=== PATIENT | male | born 1950 | race Caucasian/White ===

== ENCOUNTER 2021-05-23 10:44 | Outpatient (REF) | payer MEDICARE, SELFPAY ==
--- NOTE | ~2021-05-23 | CT_ITS ---
EXAMINATION: CT ABDOMEN AND PELVIS WITH CONTRAST CLINICAL INFORMATION: Left lower quadrant pain COMPARISON: None TECHNIQUE: Multidetector volumetric images were obtained from the superior aspect of the liver through the pubic symphysis following administration 85 mL of Omnipaque 350 intravenous contrast. Oral contrast was given Sagittal and coronal reformatted images were obtained on the technologist's workstation. Oral contrast: No This CT examination was performed using dose optimization techniques as appropriate, variously including the following: *Automated exposure control *Adjustment of mA and/or kV according to patient size (this includes techniques or standardized protocols for targeted exams where dose is matched to indication/reason for exam; i.e. extremities or head) *Use of iterative reconstruction technique DLP: 458 mGy-cm FINDINGS: LUNG BASES: The visualized lung bases are unremarkable. LIVER, GALLBLADDER, AND BILIARY TREE: The liver is normal in size, shape, and attenuation. No focal hepatic lesion or biliary ductal dilatation is present. The gallbladder is unremarkable with no evidence of radiopaque gallstones, gallbladder wall thickening, or obvious pericholecystic inflammatory changes. PANCREAS: Unremarkable. SPLEEN: Unremarkable. ADRENAL GLANDS: Unremarkable. KIDNEYS AND URETERS: The kidneys are normal in size, shape, and attenuation. No hydronephrosis, hydroureter, or calculi seen. No perinephric stranding. BLADDER: Unremarkable. GASTROINTESTINAL TRACT: There are numerous scattered diverticula of the sigmoid colon and left colon. There is no diverticulitis. There is no bowel wall thickening /edema. There is no bowel obstruction. There is a moderate volume of stool in the colon. The appendix is normal . The small bowel loops are unremarkable. The stomach is normal. There is no hiatal hernia. ABDOMINAL WALL: No significant hernia is appreciated. LYMPH NODES: Normal. VASCULAR: Unremarkable. PELVIC VISCERA: Prostate measures 6 cm transverse. OSSEOUS STRUCTURES: Unremarkable. CT/CT abdomen pelvis w con IMPRESSION: No acute abnormality CT scan abdomen pelvis. There is diverticulosis of the sigmoid and left colon but no evidence of diverticulitis. There is no acute abnormality of the bowel.
[2021-05-23 12:06] LABS: MANUAL DIFF FLAG NO
[2021-05-23 12:14] LABS: Basophils Absolute Auto 0.1 X10*3/uL (0.0-0.2); Basophils Percent Auto 0.6 % (0-2); Eosinophils Absolute Auto 0.2 X10*3/uL (0.0-0.4); Eosinophils Percent Auto 2.9 % (0-4); Hematocrit 40.3 % (42-52); Hemoglobin 13.1 g/dl (14.0-18.0); Imm Gran Abs Auto 0.07 X10*3/uL (0.00-0.03); Imm Gran Pct Auto 0.9 % (0.0-0.4); Lymphocytes Absolute Auto 1.8 X10*3/uL (1.2-4.9); Lymphocytes Percent Auto 22.2 % (20-40); Mean Corpuscular HGB Conc 32.5 g/dl (31.0-36.0); Mean Corpuscular Hemoglobin 29.7 pg (27.0-33.0); Mean Corpuscular Volume 91.4 fL (80-98); Mean Platelet Volume 9.5 fL (9.4-12.4); Monocytes Absolute Auto 0.5 X10*3/uL (0.1-1.2); Monocytes Percent Auto 6.4 % (2-11); Neutrophils Absolute Auto 5.5 X10*3/uL (2.0-8.3); Platelet Count 247 X10*3/uL (160-400); Red Blood Count 4.41 X10*6/uL (4.60-5.80); Red Cell Distribution Width 12.8 % (11.0-16.0); White Blood Count 8.1 X10*3/uL (4.8-10.8)
[2021-05-23 12:57] LABS: Blood Urea Nitrogen 18 mg/dL (9-16); Estimated Glomerular Filt Rate > 60
[2021-05-23] MEDS: iohexoL 350 MG/ML 100 ML INFUS..BTL IV (17:25)
[2021-05-23] MEDS: Barium Sulfate Oral (Vanilla) 450 ML ORAL.SUSP 900 ML PO (17:25)
== END 2021-05-23 10:45 | disposition home or self-care (01) ==
LOC: HO.CT 10:44
PROVIDERS: Absent Provider Pediatrics; PCP Pediatrics; Visit Provider Emergency Medicine
DX: Z12.5 Encounter for screening for malignant neoplasm of prostate (principal); R10.32 Left lower quadrant pain
CPT/HCPCS: 36415; 74177; 82565; 84153; 84520; 85025; Q9967

== ENCOUNTER → 2021-11-08 08:39 | Outpatient (BNVA) | payer MEDICARE, SELFPAY | PROVIDERS: PCP Pediatrics; Visit Provider Urology | DX: N40.1 Benign prostatic hyperplasia with lower urinary tract symptoms (principal); N13.8 Other obstructive and reflux uropathy; R33.9 Retention of urine, unspecified | CPT/HCPCS: 99202 ==

== ENCOUNTER 2021-11-15 10:03 | Outpatient (REF) | payer MEDICARE, SELFPAY ==
--- NOTE | ~2021-11-15 | US_ITS ---
EXAMINATION: US PELVIS LIMITED (BLADDER) CLINICAL INFORMATION: Poor urinary stream. BPH. COMPARISON: CT abdomen and pelvis 05/23/2021 TECHNIQUE: Real-time imaging of the bladder. FINDINGS: BLADDER: Well distended and normal. Bilateral ureteral jets are demonstrated. Prevoid bladder volume is 427 mL. Postvoid bladder volume is 50.6 mL. PROSTATE: Enlarged, with a volume of 81 mL. US/US bladder IMPRESSION: Normal sonographic appearance of the bladder. Small postvoid residual volume of 50 mL. Enlarged prostate gland..
== END 2021-11-15 10:04 | disposition home or self-care (01) ==
LOC: HO.HMGCX 10:03
PROVIDERS: PCP Pediatrics; Visit Provider Urology
DX: R39.12 Poor urinary stream (principal); N40.1 Benign prostatic hyperplasia with lower urinary tract symptoms
CPT/HCPCS: 76857

== ENCOUNTER → 2021-12-13 10:01 | Outpatient (BNVA) | payer MEDICARE, SELFPAY | PROVIDERS: PCP Pediatrics; Visit Provider Urology | DX: N40.1 Benign prostatic hyperplasia with lower urinary tract symptoms (principal); N13.8 Other obstructive and reflux uropathy; R33.9 Retention of urine, unspecified | CPT/HCPCS: 52000; 99212 ==

== ENCOUNTER 2022-07-11 16:08 | Outpatient (REF) | payer MEDICARE, SELFPAY ==
--- NOTE | ~2022-07-11 | XR_ITS ---
EXAMINATION: XR LUMBOSACRAL SPINE CLINICAL INFORMATION: Low back pain and right-sided sciatica COMPARISON: Previous lumbar spine MRI October 2017 TECHNIQUE: Three views of the lumbosacral spine. FINDINGS: There is mild curvature of the lumbar spine to the left. Bone alignment is otherwise normal. No fracture or dislocation is seen. Disc spaces are normal. There is multilevel degenerative spondylosis greatest at L2-L3, L3-L4 and L4-L5. There is lower lumbar spine facet arthritis. XR/XR lumbar spine 2-3V IMPRESSION: Multilevel degenerative changes.
== END 2022-07-11 16:09 | disposition home or self-care (01) ==
LOC: HO.XRAY 16:08
PROVIDERS: Absent Provider Pediatrics; PCP Pediatrics; Visit Provider Emergency Medicine
DX: M54.41 Lumbago with sciatica, right side (principal)
CPT/HCPCS: 72100

== ENCOUNTER → 2023-05-06 10:34 | Outpatient (BNVA) | payer MEDICARE, SELFPAY | PROVIDERS: PCP Pediatrics; Visit Provider Nurse Practitioner Family | DX: N40.1 Benign prostatic hyperplasia with lower urinary tract symptoms (principal); N13.8 Other obstructive and reflux uropathy; E11.69 Type 2 diabetes mellitus with other specified complication; N52.1 Erectile dysfunction due to diseases classified elsewhere; R33.9 Retention of urine, unspecified; R35.0 Frequency of micturition; Z79.82 Long term (current) use of aspirin; Z79.899 Other long term (current) drug therapy | CPT/HCPCS: 51798; 99212 ==

== ENCOUNTER 2023-05-28 12:37 | Outpatient (REF) | payer MEDICARE, SELFPAY ==
--- NOTE | ~2023-05-28 | XR_ITS ---
EXAMINATION: XR BILATERAL HIPS WITH AP PELVIS CLINICAL INFORMATION: Chronic bilateral hip pain (right worse than left) COMPARISON: CT of abdomen and pelvis from 05/23/2021. TECHNIQUE: Pelvis, AP view Right hip, 2 views and left hip, 2 views FINDINGS: There are vertebral osteophytes of the visualized mildly degenerated lumbar spine. The osseous pelvic ring is intact. Alignment is normal at the hips, pubic symphysis and sacroiliac joints. The articular surfaces of the sacroiliac joints are smooth. The joint space of each hip is maintained. No radiographic evidence of any significant degenerative or inflammatory arthropathy at either hip. A very small ossicle projects lateral to the left acetabulum. No suspicious bone lesions. XR/XR hip BI w PEL1V IMPRESSION: * No evidence of sacroiliitis. * No significant findings at either hip. * Mild spondylosis of the visualized lumbar spine.
== END 2023-05-28 12:38 | disposition home or self-care (01) ==
LOC: HO.XRAY 12:37
PROVIDERS: PCP Pediatrics; Visit Provider Pediatrics
DX: M25.551 Pain in right hip (principal)
CPT/HCPCS: 73521

== ENCOUNTER 2023-06-16 11:00 | Outpatient (REF) | payer MEDICARE, SELFPAY ==
--- NOTE | ~2023-06-16 | US_ITS ---
EXAMINATION: US RETROPERITONEAL COMPLETE (RENAL) CLINICAL INFORMATION: Benign prostatic hyperplasia with lower urinary tract symptoms. COMPARISON: US pelvis limited (bladder) 11/15/2021. CT abdomen and pelvis with contrast 05/23/2021. TECHNIQUE: Real-time imaging of the kidneys and bladder. FINDINGS: RIGHT KIDNEY: 10.8 x 5.6 x 5.7 cm (SAG x AP x TRV). The kidney is normal in size, contour, and echogenicity. Renal cortical thickness is normal. No renal calculi or hydronephrosis. Subcentimeter benign-appearing renal cyst, no follow-up imaging recommended. LEFT KIDNEY: 11.9 x 4.9 x 4.7 cm (SAG x AP x TRV). The kidney is normal in size, contour, and echogenicity. Renal cortical thickness is normal. No hydronephrosis. Subcentimeter benign-appearing renal cyst, no follow-up imaging recommended. Nonobstructing 2 mm lower pole renal stone. BLADDER: Well distended. Bilateral ureteral jets are demonstrated. Prevoid bladder volume is 182 mL. Postvoid bladder volume is 9.3 mL. Urinary bladder is equivocally thick-walled, consider correlation with urinalysis and symptoms of cystitis. ADDITIONAL FINDINGS: Prostate is enlarged measuring 47 mL. US/US retroperitoneal comp IMPRESSION: 1. Urinary bladder is equivocally thick-walled, consider correlation with urinalysis and symptoms of cystitis. 2. Prostate is enlarged measuring 47 mL. 3. Nonobstructing 2 mm left lower pole renal stone.
== END 2023-06-16 11:01 | disposition home or self-care (01) ==
LOC: HO.US 11:00
PROVIDERS: PCP Pediatrics; Visit Provider Nurse Practitioner Family
DX: N40.1 Benign prostatic hyperplasia with lower urinary tract symptoms (principal); N13.8 Other obstructive and reflux uropathy
CPT/HCPCS: 76770

== ENCOUNTER 2023-06-20 12:52 | Outpatient (AMB) | payer MEDICARE, SELFPAY ==
--- NOTE | 2023-06-20 13:03 | MHC.OFFVIS ---
Intake Intake Visit Reasons: cysto/US(06/16) Intake Note: Patient presents today for a CYSTOSCOPY Procedure: Meds: Finasteride & Terazosin Allergies to Antibiotic: Sulfa Blood Thinner: Aspirin Urinalysis test clear for Cysto? Disposable Uro-G Cystoscope Cannula: Lot: [id number] Exp: 03/28/2025 Allergies No Known Allergies Allergy (Verified 05/06/23 10:36) PFSH Medical History HTN (hypertension) Hyperlipidemia Social History Alcohol intake: current Alcohol intake frequency: holidays/special occasions only Alcohol type: wine Patient Tobacco Use Status: Never used Tobacco Coding Diagnoses
--- NOTE | 2023-06-20 13:10 | A.OFFVIS_ITS ---
Intake Intake Visit Reasons: cysto/US(06/16) Intake Note: Pt presents to the office for a Cystoscopy/US. Urinalysis done. Allergies No Known Allergies Allergy (Verified 07/07/23 07:48) HPI HPI Comments History of Present Illness Details Jamir is a pleasant Portugese male. He is a patient of Dr. Boyd. he is seen for the follow-up issues - bladder outlet obstruction - erectile dysfunction Prior TURP in [place]/ Cysto with persistent tissue Plan for revision PREVIOUS VISIT HISTORY ------ cystoscopy - large apple shaped prostate Lower urinary tract symptoms Progressive with nocturia 2-3 Feeling of incomplete bladder emptying and weak stream with urinary hesitancy Current medication combination therapy terazosin 5 mg and finasteride Prior therapy tamsulosin Concomitant diagnoses include diabetes Bladder ultrasound 12/15 prostate 80 g, residual 50 cc PSA 12/13 2.5 Cystoscopy 12/15 - large oval-shaped prostate Erectile dysfunction Does have good response to Levitra Has muscle cramps with tadalafil and headache with sildenafil Continue vardinafil Will look for generic availability; script provided [facility] Medical History (Updated 07/04/23 @ 09:29 by Kateryna Salomon NP) DMII (diabetes mellitus, type 2) HTN (hypertension) Hyperlipidemia Surgical History (Updated 07/07/23 @ 07:53 by Thao Dorsey) H/O cataract extraction H/O eye surgery H/O knee surgery History of prostate surgery Status post left rotator cuff repair Status post right rotator cuff repair Social History Alcohol intake: current Alcohol intake frequency: a few times a month Alcohol type: wine Patient Tobacco Use Status: Never used Tobacco Use of substances other than those prescribed or required for medical reasons: No Are you DNR?: No Advance Directives: No Advance Directives Information Provided: Yes Review of Systems Const Denies chills and Denies fever(s) Card Reports no additional complaints and Denies syncope Resp Denies cough GI Denies abdominal pain and Denies heartburn Reports as per HPI and Denies change in libido Neuro Denies syncope Psych Denies change in libido Endo Denies change in libido Physical Exam Const General: cooperative, healthy appearing, comfortable and no acute distress Orientation/consciousness: patient oriented x3 HEENT Face and sinus: Yes normal facial exam Mouth: moist mucous membranes Neck Neck: Yes normal visual inspection, Yes full ROM and Yes trachea midline Chest Chest palpation & inspection: normal inspection of the chest Resp Effort & Inspection: normal respiratory effort, able to speak in complete sentences and no respiratory distress GI Inspection: Yes normal to inspection Back/Spine/Pelvis Cervical Spine: normal cervical lordosis Thoracic/Lumbar Spine: thoracic and lumbar spine normal to inspection Skin General skin exam: no rashes or lesions noted Neuro General: patient oriented x3, gait normal, tone normal and moves all extremities Extrem General: Yes normal to inspection and Yes capillary refill normal Office Procedures Cystoscopy Consent Discussed risk and benefit or proposed procedure with the patient. Information consent for procedure given to the patient. Discussed technical aspects, risks, benefits and alternatives in full. Addressed all of the patient's questions and concerns regarding the procedure. The patient demonstrated knowledge and understanding. They wish to proceed with this procedure. Preparation The patient was prepped in the usual manner. A watermelon inspector was present and in the room. Genitalia was prepped with betadine solution in a sterile manner. Lidocaine Jelly 2% was placed into the urethra and 16Fr flexible Olympus cystoscope was inserted into the meatus after adequate lubrication. Procedure recurrent tissue [id number] DISPOSABLE SCOPE URO-G FLEXIBLE SCOPE Procedure code (CPT) selection complete Office Meds lidocaine HCl Performing Provider: Shamir Hsieh MD Administered by: Gracie Bonilla RN on 06/20/23 13:29 Dose Route Admin Location Lot Number Expiration Date [employer] 10 mL intra-urethral nitrofurantoin monohyd/m-cryst 100 mg Performing Provider: Shamir Hsieh MD Administered by: Gracie Bonilla RN on 06/20/23 13:29 Dose Route Admin Location Lot Number Expiration Date [employer] 100 mg PO Results AMB Urinalysis, Automated UA Leukoctes 0 Noemí/uL Last Edit by Marium García MA on 06/20/23 13:18 UA Nitrite Negative Last Edit by Marium García MA on 06/20/23 13:18 UA Urobilinogen 0.2 mg/dL Last Edit by Marium García MA on 06/20/23 13:18 UA Protein 0 mg/dL Last Edit by Marium García MA on 06/20/23 13:18 UA pH 6.5 Last Edit by Marium García MA on 06/20/23 13:18 UA Blood 0 Bassam/uL Last Edit by Marium García MA on 06/20/23 13:18 UA Specific [place] 1.010 Last Edit by Marium García MA on 06/20/23 13:18 UA Ketone Negative Last Edit by Marium García MA on 06/20/23 13:18 UA Bilirubin 0 mg/dL Last Edit by Marium García MA on 06/20/23 13:18 UA Glucose 0 mg/dL Last Edit by Marium García MA on 06/20/23 13:18 Results Reviewed Results Reviewed: Laboratory Last Values Urine pH (Auto) 6.5 06/20/23 13:13 Specific [place] (Auto) 1.010 06/20/23 13:13 Urine Protein (Auto) 0 mg/dL 06/20/23 13:13 Glucose (UA)(Auto) 0 mg/dL 06/20/23 13:13 Urine Ketones (Auto) Negative 06/20/23 13:13 Urine Blood (Auto) 0 Bassam/uL 06/20/23 13:13 Urine Nitrite (Auto) Negative 06/20/23 13:13 Urine Bilirubin (Auto) 0 mg/dL 06/20/23 13:13 Urine Urobilinogen (Auto) 0.2 mg/dL 06/20/23 13:13 Leukocyte Esterase (Auto) 0 Noemí/uL 06/20/23 13:13 Assessment & Plan Assessment & Plan (1) BPH w urinary obs/LUTS: Code(s): N40.1 - Benign prostatic hyperplasia with lower urinary tract symptoms; N13.8 - Other obstructive and reflux uropathy (2) Urinary urgency: Code(s): R39.15 - Urgency of urination (3) Urinary frequency: Code(s): R35.0 - Frequency of micturition Plan Risks, benefits and alternatives to therapy were discussed. These include but are not limited to infection, bleeding, damage to local organs and tissues, need for further interventions. Anesthetic risks regarding cardiac arrhythmia, blood clots, and potential mortality were discussed. The patient understands the typical recovery time and the outpatient nature of the procedure. After consideration of these risks the patient gives full informed consent and they wish to move ahead with the procedure. Revision laser prostatetcomy Orders: Orders AMB Cystoscopy 07/28/23 N40.1 - Benign prostatic hyperplasia with lower urinary tract symptoms, N13.8 - Other obstructive and reflux uropathy AMB Urinalysis Automated 06/20/23 Z13.9 - Encounter for screening, unspecified Patient Instructions: Imaging studies, laboratory and physical exam results were discussed and reviewed in detail. No major barriers to patient understanding were identified. An opportunity to ask questions regarding the treatment plan was provided. All questions were answered. The patient expressed understanding and agreement with the above treatment plan. The patient is aware they should contact our office by phone for worsening of their current condition or the appearance of new urologic symptoms. Compliance is encouraged with any medications and followup testing that is ordered. It is a privilege to participate in the urologic care of your patient. If you have any questions or concerns regarding treatment for the above conditions, or other urologic issues, please do not hesitate to contact me. The office telephone contact is [phone]. This note is constructed using voice recognition software. While every effort has been made to ensure accuracy funding analyst errors may have been included. Yours sincerely, Dr Shamir Hsieh MD, [facility] - Urology Providers of Expert, Compassionate Care for the Genitourinary System Coding Level of Care Code Est Pt Level 4 (45553) Diagnoses BPH w urinary obs/LUTS N40.1; N13.8 Urinary urgency R39.15 Urinary frequency R35.0 CPT Codes Cystoscopy - CPT: [id number] ([id number]) Cystoscopy - CPT: DISPOSABLE SCOPE URO-G FLEXIBLE SCOPE ([id number])
== END 2023-06-20 14:03 | disposition home or self-care (01) ==
PROVIDERS: PCP Pediatrics; Visit Provider Urology
DX: N40.1 Benign prostatic hyperplasia with lower urinary tract symptoms (principal); N13.8 Other obstructive and reflux uropathy; R39.15 Urgency of urination; R35.0 Frequency of micturition
CPT/HCPCS: 52000

== ENCOUNTER → 2023-06-20 12:52 | Outpatient (BNVA) | payer MEDICARE, SELFPAY | PROVIDERS: PCP Pediatrics; Visit Provider Urology | DX: N40.1 Benign prostatic hyperplasia with lower urinary tract symptoms (principal); N13.8 Other obstructive and reflux uropathy; R39.15 Urgency of urination; R35.0 Frequency of micturition | CPT/HCPCS: 52000; 81003; C1747 ==

== ENCOUNTER 2023-07-07 07:16 | Day surgery (SDC) | payer MEDICARE, SELFPAY ==
--- NOTE | 2023-07-04 09:28 | P.CONAN_ITS ---
Documented by User: Kateryna Salomon NP 07/04/23 09:29 HPI - Anesthesia Eval Consult details Narrative: 73yo M for REVISION Laser Ablation Prostate w/Green Light PMFSH Active Problems Active Problems: All Active Problems (Updated 05/06/23 @ 21:50 by JUANI PhamP-) Erectile dysfunction associated with type 2 diabetes mellitus (Acute) Urinary frequency (Acute) Urinary urgency (Acute) Incomplete emptying of bladder due to benign prostatic hyperplasia (Acute) BPH w urinary obs/LUTS (Acute) Past Medical History Medical History (Updated 07/04/23 @ 09:29 by Kateryna Salomon NP) DMII (diabetes mellitus, type 2) HTN (hypertension) Hyperlipidemia Surgical History Surgical History (Updated 07/07/23 @ 07:53 by Thao Dorsey) H/O cataract extraction H/O eye surgery H/O knee surgery History of prostate surgery Status post left rotator cuff repair Status post right rotator cuff repair Social History Social History Alcohol intake: current Alcohol intake frequency: a few times a month Alcohol type: wine Patient Tobacco Use Status: Never used Tobacco Use of substances other than those prescribed or required for medical reasons: No Are you DNR?: No Advance Directives: No Advance Directives Information Provided: Yes Meds Allergies Allergy/AdvReac Type Severity Reaction Status Date / Time No Known Allergies Allergy Verified 07/07/23 07:48 Home Medications Medication Instructions Recorded Confirmed Last Taken Type atorvastatin 40 mg tablet 40 mg PO DAILY 11/08/21 07/07/23 Unknown History losartan 50 mg-hydrochlorothiazide 1 tab PO DAILY 11/08/21 07/07/23 07/06/23 History 12.5 mg tablet albuterol sulfate 90 mcg/actuation 2 puff inhalation Q4H PRN wheezing 05/06/23 07/07/23 Unknown History aerosol inhaler (Proventil HFA) fluticasone propionate 110 1 puff inhalation DAILY 05/06/23 07/07/23 Unknown History mcg/actuation HFA aerosol inhaler (Flovent HFA) metformin 500 mg tablet,extended 1,000 mg PO DAILY 05/06/23 07/07/23 07/06/23 History release 24 hr Exam Exam Date and Time: July 04, [id number] Assessment and Plan Assessment Anesthesia Assessment: Chart Reviewed Documented by User: Ben Elizondo MD 07/07/23 09:07 PMF Past Medical History Medical History (Updated 07/04/23 @ 09:29 by Kateryna Salomon NP) DMII (diabetes mellitus, type 2) HTN (hypertension) Hyperlipidemia Family History Family history of problems with anesthesia: No Surgical History Surgical History (Updated 07/07/23 @ 07:53 by Thao Dorsey) H/O cataract extraction H/O eye surgery H/O knee surgery History of prostate surgery Status post left rotator cuff repair Status post right rotator cuff repair History of Problems with Anesthesia: No Social History Social History Alcohol intake: current Alcohol intake frequency: a few times a month Alcohol type: wine Patient Tobacco Use Status: Never used Tobacco Use of substances other than those prescribed or required for medical reasons: No Are you DNR?: No Advance Directives: No Advance Directives Information Provided: Yes Meds Allergies Allergy/AdvReac Type Severity Reaction Status Date / Time No Known Allergies Allergy Verified 07/07/23 07:48 Home Medications Medication Instructions Recorded Confirmed Last Taken Type atorvastatin 40 mg tablet 40 mg PO DAILY 11/08/21 07/07/23 Unknown History losartan 50 mg-hydrochlorothiazide 1 tab PO DAILY 11/08/21 07/07/23 07/06/23 History 12.5 mg tablet albuterol sulfate 90 mcg/actuation 2 puff inhalation Q4H PRN wheezing 05/06/23 07/07/23 Unknown History aerosol inhaler (Proventil HFA) fluticasone propionate 110 1 puff inhalation DAILY 05/06/23 07/07/23 Unknown History mcg/actuation HFA aerosol inhaler (Flovent HFA) metformin 500 mg tablet,extended 1,000 mg PO DAILY 05/06/23 07/07/23 07/06/23 History release 24 hr Exam Airway Mallampati Class: I TM Dist: >3cm Neck ROM: Full Loose/Missing/Broken Teeth: No Heart: ok Lungs: ok Assessment and Plan Assessment Anesthesia Assessment: Anesthesia Plan Discussed Final Anesthetic Review Family History of Problems with Anesthesia: No History of Problems with Anesthesia: No NPO: Yes ASA Class: II Final Preanesthetic Review: No Changes in Pt Med Stat, Meds/Allgs Chart Reviewed , Consent Obtained/Reviewed and Anes Risks/Benef Reviewed Patient Risk: Low Procedure Risk: Low Anesthetic Plan Anesthetic Plan: GA and Agree w/ Assess. and Plan Disposition: Standard PACU
[2023-07-07] VITALS (7 sets, daily range): BP systolic 128–143; BP diastolic 62–70; PULSE 56–72; RESP 12–16; TEMP 36.3–36.9; O2SAT 95–98; BMI 29.1
[2023-07-07 08:01] LABS: Glucose, Whole Blood 148 mg/dL (60-115)
[2023-07-07] MEDS: Lactated Ringers 1,000 ML 100 ML IVCONT (08:17)
--- NOTE | 2023-07-07 08:35 | MHC.SHP ---
Pre-Procedural Eval Section A Date of Service: 07/07/23 The patient is an INPATIENT: No Changes since office visit: No Cold of Flu in the past 2 weeks, No New Medical Problems, No Changes in Medication and No Patient answered all questions The History & Physical has been completed within 30 days and I have reviewed it.: No Section B Chief Complaint: Benign prostatic hyperplasia with lower urinary tr Details of Present Illness: RECURRENT TISSUE Relevant Social History: None Present Medications: see Short Stay Collaborative assessment Medical History: No relevant PMH History of Previous Operations: Relevant previous surgery/procedure and date(s) Allergies: Allergies Allergy/AdvReac Type Severity Reaction Status Date / Time No Known Allergies Allergy Verified 07/07/23 07:48 Review of Systems Sugical H&P ROS: Negative: Constitution, Cardiovascular, Respiratory, Neurological, Psychiatric, Hem-Onc, Allergic/Immunologic, Gastrointestinal, Genitourinary, Musculoskeletal, Integumentary, Endocrine and Eyes/Ears/Nose/Throat Exam Surgical H&P Exam: Normal: HEENT, Normal: Heart, Normal: Lungs, Normal: Extremities, Normal: Abdomen, Normal: Skin and Normal: Neurological Plan Diagnosis/Plan: Unchanged (revision TURP laser) I have reviewed the history and physical and performed a pertinent physical examination on my patient. No changes have occurred unless specified. Time Spent With Patient Time: Total time managing care of this patient today ____ minutes.
--- NOTE | 2023-07-07 09:44 | P.OP_ITS ---
Operative Note Operative Note Date of Service: 07/07/23 Narrative: PreOperative Diagnosis: Bladder outlet obstruction Post Operative Diagnosis: Bladder outlet obstruction Procedure: GreenLight Laser Enucleation of the prostate Surgeon: Dr Shamir Hsieh Anesthesia: General Indications for procedure: apparent procedure in [place] but still very symptomatic History of bladder outlet obstruction. Treated with alpha-obed and other medications. Still with symptoms. On cystoscopy in office has trilobar prostate. Recommendation for prostate procedure with laser enucleation of prostate. Risks and benefits have been discussed. Focus was placed on development of retrograde ejaculation which is a normal part of this procedure. Procedure: After informed consent was verified the patient was brought to the operating room and placed in a supine position. Anesthesia was administered per protocol. Patient was placed in modified dorsal lithotomy position and prepped and draped in a sterile fashion. Safety pause time-out was confirmed. Antibiotics have been given. A Twenty-four Sinhala laser cystoscope was inserted per urethra. No abnormalities were found of the anterior and bulbar urethra. The bladder was examined and both ureteric orifices were seen in their normal positions away from the area of interest. Using a GreenLight laser with settings of 80 w incisions were made at the 5 and 7 o'clock position. The incisions were taken down from the bladder neck down to the level of the veru. These were gradually deepened in order to define the lateral aspects of the median lobe area. Once clearly defined they will also extended in the lateral directions in order to create a deep groove. The median lobe was then ablated and enucleated tissue released into the bladder with the laser power increased to 120 W. Once the median lobe area had been cleared attention was directed to the lateral lobes. Starting with the patient's left lateral lobe. First the 05:00 o'clock groove was further developed. This was moved in the lateral direction to undermine the tissue on the lateral side running from the bladder neck to the prostate apex. Focus was then placed on the laser at the 1 o'clock position to developing a secondary groove down to the level of bladder fibers. The creation of a second deep groove defined a segment of intervening tissue similar to a slice of orange. At the apex of the prostate the 2 grooves were linked the us releasing the intervening tissue. This tissue was then removed with a combination of enucleation and ablation working from the apex toward the bladder neck. A similar procedure was repeated on the patient's right-hand side. The only differences being the position of the lateral groove at he 7 'oclock positioin and the secondary groove at the 11 o'clock position, Otherwise the procedure was developed in a mirror fashion. After the majority of tissue had been debulked remnant tissue was ablated with the side fire laser and the curve of the prostate followed up each side wall clearly defining the anterior remnant strip that remained between the 11 and 1 o'clock positions. When this was had been completed debris and pieces of prostate were removed from the bladder with irrigation. Both ureteric orifices were reviewed again in shown to be patent in away from any areas of energy damage. The apical area was reviewed in any stray ooze was controlled. A 22 Sinhala 30 cc balloon Cates catheter was placed over a stylet into the bladder. Clear efflux was obtained upopn irrigation with a Ayleen piston syringe. 30 cc was placed in the balloon and gentle traction was placed. A snap was used to hold tension on the catheter to control bleeding during patient moved and transported. A drainage bag was placed. Once transportation is complete to the PACU the snap will be removed. The patient tolerated the procedure well, he was extubated in the operating and transferred in a stable condition to the recovery area. Total Power 150 kW Lasing time 22:31 Pathology: Prostate tissue Drains: Cates catheter
== END 2023-07-07 11:25 | disposition home or self-care (01) ==
PROVIDERS: PCP Pediatrics; Visit Provider Urology
PROC: (CPT 52648; principal; 2023-07-07 08:50)
DX: N40.1 Benign prostatic hyperplasia with lower urinary tract symptoms (principal); N32.0 Bladder-neck obstruction; N13.8 Other obstructive and reflux uropathy; R39.15 Urgency of urination; R35.0 Frequency of micturition; R35.1 Nocturia; N52.1 Erectile dysfunction due to diseases classified elsewhere; E11.9 Type 2 diabetes mellitus without complications; I10 Essential (primary) hypertension; E78.5 Hyperlipidemia, unspecified; Z79.899 Other long term (current) drug therapy; Z79.84 Long term (current) use of oral hypoglycemic drugs; Z98.890 Other specified postprocedural states
CPT/HCPCS: 52649; 82947; 88305; J1885; J1956; J2405; J3010

== ENCOUNTER → 2023-07-07 07:16 | Outpatient (BNV) | payer MEDICARE, SELFPAY | PROVIDERS: PCP Pediatrics; Visit Provider Urology | DX: N32.0 Bladder-neck obstruction (principal) | CPT/HCPCS: 52649 ==

== ENCOUNTER 2023-07-10 10:22 | Outpatient (AMB) | payer MEDICARE, SELFPAY ==
--- NOTE | 2023-07-10 10:41 | AM.OFFVISNUR ---
Intake Intake Visit Reasons: Voiding trial (greenlight) Allergies No Known Allergies Allergy (Verified 07/07/23 07:48) Office Procedures Bladder/Catheter Procedure Details: 120 mls sterile water instilled into bladder, 22 fr cath 30 mls balloon removed, pt tolerated removal well. able to urinate into urinal 240 mls. pvr 0 ml. advised pt increased fluids today, call office by 2 pm if unable or having difficulty urinating. 6 wk post op f/u. 06725-Znyszaxyqf of Bladder Procedure code (CPT) selection complete Post Void Residual Post Residual Void Post Void Residual (PVR): 0 97250-Lcih Void Residual by ultrasound Coding Diagnoses CPT Codes Bladder/Catheter Procedure - CPT: 23177-Hojjkokehj of Bladder ([id number]) Post Residual Void - PVR CPT Code: 18147-Ygio Void Residual by ultrasound ([id number]) Assessment & Plan Assessment & Plan Orders: Orders AMB Bladder/Catheter Procedure Today N40.1 - Benign prostatic hyperplasia with lower urinary tract symptoms, R33.9 - Retention of urine, unspecified AMB Post Void Residual by ultrasound Today N40.1 - Benign prostatic hyperplasia with lower urinary tract symptoms, R33.9 - Retention of urine, unspecified
== END 2023-07-10 11:00 | disposition home or self-care (01) ==
PROVIDERS: PCP Pediatrics; Visit Provider Urology
DX: N40.1 Benign prostatic hyperplasia with lower urinary tract symptoms (principal)
CPT/HCPCS: 51700

== ENCOUNTER → 2023-07-10 10:22 | Outpatient (BNVA) | payer MEDICARE, SELFPAY | PROVIDERS: PCP Pediatrics; Visit Provider Urology | DX: N40.1 Benign prostatic hyperplasia with lower urinary tract symptoms (principal); R33.9 Retention of urine, unspecified | CPT/HCPCS: 51700; 51798 ==

== ENCOUNTER 2023-08-11 10:24 | Outpatient (AMB) | payer MEDICARE, SELFPAY ==
--- NOTE | 2023-08-11 10:42 | MHC.OFFVIS ---
Intake Vital Signs 08/11/23 10:53 Height 5 ft 7 in Weight 184 lb BMI 28.8 BP 118/74 Blood Pressure Location Rt brachial Position Sitting Respiration 16 Pulse 71 Pulse Source Pulse Oximeter Pulse Oximetry (%) 98 Oxygen Delivery Method Room Air Intake Visit Reasons: Right Hip Pain Intake Note: patient comes in for initial visit was referred by pcp. Allergies No Known Allergies Allergy (Verified 08/11/23 10:46) HPI HPI Comments History of Present Illness Details Jamir is very pleasant 73 years old gentleman who presents in my office with complains in the pain in the right hip area mostly on the posterior surface as well as pain in the lower back. He reports that he is suffering from this pain for long period of time but until now the pain was mild. He reports that he felt exacerbation of pain in January of 2023 because he fell in the yd. He reports he has pain severity today 07/03. He reports the pain is getting aggravated when he attempts to position himself on the right side with the left lower extremity going in the front of the right 1. He cannot sleep normally because of this pain cannot do activities of daily living he can take care of himself but he cannot function normally. He reports that movements aggravate his pain and he tried local heat which minimally alleviate his pain. Pain is Lakshmi severe when he stands in the shower and apply ice hot water to the location of the pain. In terms of tissue damage he reports his pain is aching, stabbing, lancinating, tiring and exhausting sensation he had many images in [facility] x-rays which demonstrated no pathology in the sacroiliac joints and no pathology in the hip joints, no suspicious lesions and no fractures. The x-ray of the lumbar spine demonstrated significant spondylosis and lower lumbar facet arthropathy. He tried physical therapy which did not help his pain. He never tried any injections. 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 Surgical history significant for recent prostate surgery for presumably benign prostate lesion history of cataract and history of bilateral right and left rotator cuff repair in 2012 and 2010 respectively. Past social history: He is retired individual. He is denying smoking cigarettes drinking alcohol drinks caffeinated beverages but never use recreational drugs. Of note at the end of the encounter today he complains also on pain in the right thumb, he said this is the trauma of right thumb he received a while ago. [facility] Medical History (Updated 08/11/23 @ 13:03 by Jose Lea MD) DMII (diabetes mellitus, type 2) Hyperlipidemia HTN (hypertension) Surgical History (Updated 07/07/23 @ 07:53 by Thao Dorsey) H/O knee surgery H/O eye surgery H/O cataract extraction Status post right rotator cuff repair Status post left rotator cuff repair History of prostate surgery Social History Alcohol intake: current Alcohol intake frequency: a few times a month Alcohol type: wine Patient Tobacco Use Status: Never used Tobacco Review of Systems Const All systems reviewed & are unremarkable except as noted in HPI and below Reports no additional complaints Card Reports no additional complaints Resp Reports no additional complaints GI Reports no additional complaints Reports as per HPI Musc Reports as per HPI Neuro Reports no additional complaints Psych Reports no additional complaints Physical Exam Vital Signs: Last Vital Signs Pulse 71 08/11/23 10:53 Resp 16 08/11/23 10:53 BP 118/74 08/11/23 10:53 Pulse Ox 98 08/11/23 10:53 Oxygen Delivery Method Room Air 08/11/23 10:53 BMI result Body Mass Index 28.8 Const General: cooperative, healthy appearing, comfortable and no acute distress Orientation/consciousness: patient oriented x3 HEENT Face and sinus: Yes normal facial exam Mouth: moist mucous membranes Neck Neck: Yes normal visual inspection, Yes full ROM and Yes trachea midline Chest Chest palpation & inspection: normal inspection of the chest Resp Effort & Inspection: normal respiratory effort, able to speak in complete sentences and no respiratory distress GI Inspection: Yes normal to inspection Back/Spine/Pelvis Other: On physical exam [place], Álvaro, and pelvic compression tests are all positive on the right. Flexing forward aggravates pain and flexing backwards alleviates pain. Strength of bilateral lower extremities appear to be within normal limits with gait not disturbed. 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: Code(s): M19.042 - Primary osteoarthritis, left hand (2) Sacroiliitis: Code(s): M46.1 - Sacroiliitis, not elsewhere classified (3) Chronic SI joint pain: Code(s): M53.3 - Sacrococcygeal disorders, not elsewhere classified; G89.29 - Other chronic pain (4) Sacroiliac joint dysfunction of right side: Code(s): M53.3 - Sacrococcygeal disorders, not elsewhere classified (5) Low back pain: Code(s): M54.50 - Low back pain, unspecified (6) Spondylosis without myelopathy or radiculopathy, lumbar region: Code(s): M47.816 - Spondylosis without myelopathy or radiculopathy, lumbar region Plan I will schedule this patient for diagnostic right sacroiliac joint injection. Depending on the results of the injection I will offer this gentleman procedures to treat his sacroiliac joint pain. If SI joint injection is not successful to treat his pain I will consider medial branch blocks on the right diagnostic as well. As of his pain in the left thumb I offered him to see Dr. Saab, our hand surgeon. I will make appropriate referral. 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
[2023-08-11 10:53] VITALS: BP 118/74; PULSE 71; RESP 16; O2SAT 98; BMI 28.8
== END 2023-08-11 11:21 | disposition home or self-care (01) ==
PROVIDERS: PCP Pediatrics; Visit Provider Anesthesiology
DX: M19.042 Primary osteoarthritis, left hand (principal); M46.1 Sacroiliitis, not elsewhere classified; M53.3 Sacrococcygeal disorders, not elsewhere classified; G89.29 Other chronic pain; M54.50 Low back pain, unspecified; M47.816 Spondylosis without myelopathy or radiculopathy, lumbar region
CPT/HCPCS: 99204

== ENCOUNTER → 2023-08-11 10:24 | Outpatient (BNVA) | payer MEDICARE, SELFPAY | PROVIDERS: PCP Pediatrics; Visit Provider Anesthesiology ==

== ENCOUNTER 2023-08-26 06:20 | Outpatient (REF) | payer MEDICARE, SELFPAY | END 2023-08-26 06:21 | disposition home or self-care (01) | LOC: CF 06:20 | PROVIDERS: Visit Provider Anesthesiology | DX: M53.3 Sacrococcygeal disorders, not elsewhere classified (principal); M19.042 Primary osteoarthritis, left hand; M46.1 Sacroiliitis, not elsewhere classified; M47.816 Spondylosis without myelopathy or radiculopathy, lumbar region; N40.1 Benign prostatic hyperplasia with lower urinary tract symptoms; N13.8 Other obstructive and reflux uropathy | CPT/HCPCS: 27096; 51798; 81003; 99212; J2795 ==

== ENCOUNTER 2023-08-26 11:04 | Outpatient (AMB) | payer MEDICARE, SELFPAY ==
--- NOTE | 2023-08-26 11:28 | A.OFFVIS_ITS ---
Intake Intake Visit Reasons: 6w/greenlight post op Intake Note: Patient is Present for Follow Up Post Op GreenLight Urology Medication:None Antibiotic Allergies: None Blood Thinners: None Pharmacy: [facility] PVR: 0ML Patient states that he has been experiencing more frequency than before. As soon as patient had finished he gets the feeling to urinate again. States there has been some discomfort as well Allergies No Known Allergies Allergy (Verified 08/26/23 11:29) HPI HPI Comments History of Present Illness Details Jamir is a pleasant Portugese male. He is a patient of Dr. Boyd. he is seen for the follow-up issues - bladder outlet obstruction - erectile dysfunction Had prior procedure in [place] with what sounds like attempt at vascular coil Six weeks from GreenLight laser Significantly improved flow Urgency and frequency improving Six month follow-up PSA Lower urinary tract symptoms Progressive with nocturia 2-3 Feeling of incomplete bladder emptying and weak stream with urinary hesitancy Current medication combination therapy terazosin 5 mg and finasteride Prior therapy tamsulosin Concomitant diagnoses include diabetes Bladder ultrasound 12/15 prostate 80 g, residual 50 cc PSA 12/13 2.5 Cystoscopy 12/15 - large oval-shaped prostate Erectile dysfunction Does have good response to Levitra Has muscle cramps with tadalafil and headache with sildenafil Continue vardinafil Will look for generic availability; script provided [facility] Medical History DMII (diabetes mellitus, type 2) Hyperlipidemia HTN (hypertension) Surgical History H/O knee surgery H/O eye surgery H/O cataract extraction Status post right rotator cuff repair Status post left rotator cuff repair History of prostate surgery Social History Alcohol intake: current Alcohol intake frequency: a few times a month Alcohol type: wine Patient Tobacco Use Status: Never used Tobacco Review of Systems Const Denies chills and Denies fever(s) Card Reports no additional complaints and Denies syncope Resp Denies cough GI Denies abdominal pain and Denies heartburn Reports as per HPI and Denies change in libido Neuro Denies syncope Psych Denies change in libido Endo Denies change in libido Physical Exam Const General: cooperative, healthy appearing, comfortable and no acute distress Orientation/consciousness: patient oriented x3 HEENT Face and sinus: Yes normal facial exam Mouth: moist mucous membranes Neck Neck: Yes normal visual inspection, Yes full ROM and Yes trachea midline Chest Chest palpation & inspection: normal inspection of the chest Resp Effort & Inspection: normal respiratory effort, able to speak in complete sentences and no respiratory distress GI Inspection: Yes normal to inspection Back/Spine/Pelvis Cervical Spine: normal cervical lordosis Thoracic/Lumbar Spine: thoracic and lumbar spine normal to inspection Skin General skin exam: no rashes or lesions noted Neuro General: patient oriented x3, gait normal, tone normal and moves all extremities Extrem General: Yes normal to inspection and Yes capillary refill normal Office Procedures Post Void Residual Post Residual Void Post Void Residual (PVR): 0 33546-Xtvh Void Residual by ultrasound Results AMB Urinalysis, Automated UA Leukoctes 70 Noemí/uL Last Edit by Elma Calvert [facility] on 08/26/23 11:36 UA Nitrite Negative Last Edit by Elma Calvert Nigel on 08/26/23 11:36 UA Urobilinogen 0.2 mg/dL Last Edit by Elma Calvert [facility] on 08/26/23 11:3 6 UA Protein 0 mg/dL Last Edit by Elma Calvert [facility] on 08/26/23 11:36 UA pH 5.5 Last Edit by Elma Calvert [facility] on 08/26/23 11:36 UA Blood 10 Bassam/uL Last Edit by Elam Calvert [facility] on 08/26/23 11:36 UA Specific [place] 1.015 Last Edit by Elma Calvert Nigel on 08/26/23 11: 36 UA Ketone Negative Last Edit by Elma Calvert [facility] on 08/26/23 11:36 UA Bilirubin 0 mg/dL Last Edit by Elma Calvert [facility] on 08/26/23 11:36 UA Glucose 1000 mg/dL Last Edit by Elma Calvert [facility] on 08/26/23 11:36 Assessment & Plan Assessment & Plan (1) BPH w urinary obs/LUTS: Code(s): N40.1 - Benign prostatic hyperplasia with lower urinary tract symptoms; N13.8 - Other obstructive and reflux uropathy Plan Six month follow-up PSA Orders: Orders Prostate Specific Antigen 6 Months N13.8 - Other obstructive and reflux uropathy, N40.1 - Benign prostatic hyperplasia with lower urinary tract symptoms AMB Urinalysis Automated Today Z13.9 - Encounter for screening, unspecified AMB Post Void Residual by ultrasound Today N13.8 - Other obstructive and reflux uropathy, N40.1 - Benign prostatic hyperplasia with lower urinary tract symptoms Patient Instructions: Imaging studies, laboratory and physical exam results were discussed and reviewed in detail. No major barriers to patient understanding were identified. An opportunity to ask questions regarding the treatment plan was provided. All questions were answered. The patient expressed understanding and agreement with the above treatment plan. The patient is aware they should contact our office by phone for worsening of their current condition or the appearance of new urologic symptoms. Compliance is encouraged with any medications and followup testing that is ordered. It is a privilege to participate in the urologic care of your patient. If you have any questions or concerns regarding treatment for the above conditions, or other urologic issues, please do not hesitate to contact me. The office telephone contact is [phone]. This note is constructed using voice recognition software. While every effort has been made to ensure accuracy employee's representative errors may have been included. Yours sincerely, Dr Shamir Hsieh MD, [facility] - Urology Providers of Expert, Compassionate Care for the Genitourinary System Coding Level of Care Code Est Pt Level 3 (10368) Diagnoses BPH w urinary obs/LUTS N40.1; N13.8 CPT Codes Post Residual Void - PVR CPT Code: 21592-Fimg Void Residual by ultrasound ([id number])
== END 2023-08-26 11:47 | disposition home or self-care (01) ==
PROVIDERS: PCP Pediatrics; Visit Provider Urology
DX: N40.1 Benign prostatic hyperplasia with lower urinary tract symptoms (principal); N13.8 Other obstructive and reflux uropathy; Z13.9 Encounter for screening, unspecified
CPT/HCPCS: 99024

== ENCOUNTER 2023-08-26 14:20 | Outpatient (AMB) | payer MEDICARE, SELFPAY ==
--- NOTE | 2023-08-26 14:37 | MHC.OFFVIS ---
Intake Vital Signs 08/26/23 14:58 08/26/23 15:00 Height 5 ft 7 in 5 ft 7 in Weight 184 lb 84 lb BMI 28.8 13.2 BP 138/80 126/68 Blood Pressure Location Rt brachial Rt brachial Position Sitting Sitting Respiration 18 18 Pulse 76 76 Pulse Source Pulse Oximeter Pulse Oximeter Pulse Oximetry (%) 96 94 Oxygen Delivery Method Room Air Room Air Comment pre-op post-op Intake Visit Reasons: R DX SIJ INJ/LOCAL Allergies No Known Allergies Allergy (Verified 08/26/23 15:01) PFSH Medical History DMII (diabetes mellitus, type 2) Hyperlipidemia HTN (hypertension) Surgical History H/O knee surgery H/O eye surgery H/O cataract extraction Status post right rotator cuff repair Status post left rotator cuff repair History of prostate surgery Social History Alcohol intake: current Alcohol intake frequency: a few times a month Alcohol type: wine Patient Tobacco Use Status: Never used Tobacco Physical Exam Vital Signs: Last Vital Signs Pulse 76 08/26/23 15:00 Resp 18 08/26/23 15:00 BP 126/68 08/26/23 15:00 Pulse Ox 94 08/26/23 15:00 Oxygen Delivery Method Room Air 08/26/23 15:00 BMI result Body Mass Index 13.2 Results AMB Urinalysis, Automated UA Leukoctes 70 Noemí/uL Last Edit by DULCE Mcknight on 08/26/23 11:36 UA Nitrite Negative Last Edit by DULCE Mcknight on 08/26/23 11:36 UA Urobilinogen 0.2 mg/dL Last Edit by DULCE Mcknight on 08/26/23 11:36 UA Protein 0 mg/dL Last Edit by DULCE Mcknight on 08/26/23 11:36 UA pH 5.5 Last Edit by DULCE Mcknight on 08/26/23 11:36 UA Blood 10 Bassam/uL Last Edit by DULCE Mcknight on 08/26/23 11:36 UA Specific [place] 1.015 Last Edit by Elma Calvert [facility] on 08/26/23 11:36 UA Ketone Negative Last Edit by Elma Calvert [facility] on 08/26/23 11:36 UA Bilirubin 0 mg/dL Last Edit by Elma Calvert, KURTISA on 08/26/23 11:36 UA Glucose 1000 mg/dL Last Edit by Elma Calvert [facility] on 08/26/23 11:36 Assessment & Plan Assessment & Plan (1) 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 All questions about benefits and risks for the procedure were answered. Patient came to the operating room and was positioned prone on the operating table with the pillow under her pelvis. ?[employer] [employer] monitors were applied and patient was sedated. ? Time out was performed delineating name and of the patient, site and side of the procedure, nature of the procedure and potential patient?s risks. The lower back of the patient and upper buttocks was prepped with ChloraPrep prepped and draped with sterile utility drapes.? C-arm was brought over the operating field and square picture of patient's pelvis was demonstrated on the screen.? For the right joint tilting C-arm contralateral to the site of the joint the posterior joint silhouette was delineated on the screen. Skin projection of the joint was chosen as a target of the injection and it was injected ?slightly medial to the location of the joint with 25 gauge needle using local lidocaine 2% without epinephrine. After that 22 gauge 3 and 1/2 inch needle was driven to the joint silhouette in tunnel vision fashion.? When needle entered the joint capsule injection of the contrast was performed demonstrating intra-articular spread of the contrast.? After that 4 cc. of ropivacaine 0.5% was injected into the joint. Upon completion of the injections the needle was removed and sterile dressing was applied.? Upon completion of the injection patient was awaken taken outside of the operating room to the recovery room where recovered uneventfully.? (3) Chronic SI joint pain: Code(s): M53.3 - Sacrococcygeal disorders, not elsewhere classified; G89.29 - Other chronic pain (4) Sacroiliac joint dysfunction of right side: Code(s): M53.3 - Sacrococcygeal disorders, not elsewhere classified (5) Low back pain: Code(s): M54.50 - Low back pain, unspecified (6) Spondylosis without myelopathy or radiculopathy, lumbar region: Code(s): M47.816 - Spondylosis without myelopathy or radiculopathy, lumbar region Plan I will schedule this patient for diagnostic right sacroiliac joint injection. Depending on the results of the injection I will offer this gentleman procedures to treat his sacroiliac joint pain. If SI joint injection is not successful to treat his pain I will consider medial branch blocks on the right diagnostic as well. As of his pain in the left thumb I offered him to see Dr. Saab, our hand surgeon. I will make appropriate referral. 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
[2023-08-26 14:58] VITALS: BP 138/80; PULSE 76; RESP 18; O2SAT 96; BMI 28.8
[2023-08-26 15:00] VITALS: BP 126/68; PULSE 76; RESP 18; O2SAT 94; BMI 13.2
== END 2023-08-26 15:27 | disposition home or self-care (01) ==
LOC: HO.PMCPRC 14:20
PROVIDERS: PCP Pediatrics; Visit Provider Anesthesiology
DX: M46.1 Sacroiliitis, not elsewhere classified (principal); M53.3 Sacrococcygeal disorders, not elsewhere classified
CPT/HCPCS: 27096

== ENCOUNTER 2023-08-28 10:18 | Outpatient (AMB) | payer MEDICARE, SELFPAY ==
[2023-08-28 10:28] VITALS: BP 140/60; PULSE 65; RESP 16; O2SAT 98; BMI 29.0
--- NOTE | 2023-08-28 10:28 | MHC.OFFVIS ---
Intake Vital Signs 08/28/23 10:28 Height 5 ft 7 in Weight 185 lb BMI 29.0 BP 140/60 H Blood Pressure Location Lt brachial Position Sitting Respiration 16 Pulse 65 Pulse Source Pulse Oximeter Pulse Oximetry (%) 98 Oxygen Delivery Method Room Air Intake Visit Reasons: R DX SIJ INJ 08/26/23/ LVM. Intake Note: patient comes in for post-op appointment. Allergies No Known Allergies Allergy (Verified 08/28/23 10:39) HPI HPI Comments History of Present Illness Details Jamir is back in my office after diagnostic right SI joint injection. He reports kalpesh before the procedure to the level of 6-7/10. from mmediately after the procedure up until 3 hours after the procedure he reports pain 2/10. and for the next 3 hours he reports the pain 3/10. at the six hour after the procedure he reported pain 6/10 with the maneuvers which aggravate his pain but next morning good pain relieve and improved mobility. Today 48 hours after the procedure he reports good pain relieve and he reports good night sleep. We discussed his pain today: I have offered him when his pain will come back full strength 3 different modes to treat his pain: SIJ innervation PNS, SIJ stabilization with arthrodesis fusion, SI joint innervation stimulation and SI joint steroid injection. He reported to me that he is leaving for [facility] in a week and would like to think about it and research it more. He will come back in the mid September and he will make an appointment with us. Prior: C/o pain in the right hip area mostly on the posterior surface as well as pain in the lower back. He reports that he is suffering from this pain for long period of time but until now the pain was mild. exacerbation of the pain in January of 2023 because he fell in the yard. the pain is getting aggravated when he attempts to position himself on the right side with the left lower extremity going in the front of the right one. movements aggravate his pain and he tried local heat which minimally alleviate his pain. Pain is Least severe when he stands in the shower and apply ice or hot water to the location of the pain. he had many images in [facility] x-rays which demonstrated no pathology in the sacroiliac joints and no pathology in the hip joints, no suspicious lesions and no fractures. The x-ray of the lumbar spine demonstrated significant spondylosis and lower lumbar facet arthropathy. He tried physical therapy which did not help his pain. He never tried any injections. [facility] Medical History DMII (diabetes mellitus, type 2) Hyperlipidemia HTN (hypertension) Surgical History H/O knee surgery H/O eye surgery H/O cataract extraction Status post right rotator cuff repair Status post left rotator cuff repair History of prostate surgery Social History Alcohol intake: current Alcohol intake frequency: a few times a month Alcohol type: wine Patient Tobacco Use Status: Never used Tobacco Review of Systems Const All systems reviewed & are unremarkable except as noted in HPI and below Physical Exam Vital Signs: Last Vital Signs Pulse 65 08/28/23 10:28 Resp 16 08/28/23 10:28 BP 140/60 H 08/28/23 10:28 Pulse Ox 98 08/28/23 10:28 Oxygen Delivery Method Room Air 08/28/23 10:28 BMI result Body Mass Index 29.0 Const General: cooperative, healthy appearing, comfortable and no acute distress Orientation/consciousness: patient oriented x3 HEENT Face and sinus: Yes normal facial exam Mouth: moist mucous membranes Neck Neck: Yes normal visual inspection, Yes full ROM and Yes trachea midline Chest Chest palpation & inspection: normal inspection of the chest Resp Effort & Inspection: normal respiratory effort, able to speak in complete sentences and no respiratory distress Cardio Jugular venous distension: no JVD GI Inspection: Yes normal to inspection Back/Spine/Pelvis Other: On physical exam Gaenslen, Álvaro, and pelvic compression tests are all positive on the right. Flexing forward aggravates pain and flexing backwards alleviates pain. Strength of bilateral lower extremities appear to be within normal limits with gait not disturbed. 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: Code(s): M19.042 - Primary osteoarthritis, left hand (2) Sacroiliitis: Code(s): M46.1 - Sacroiliitis, not elsewhere classified (3) Chronic SI joint pain: Code(s): M53.3 - Sacrococcygeal disorders, not elsewhere classified; G89.29 - Other chronic pain (4) Sacroiliac joint dysfunction of right side: Code(s): M53.3 - Sacrococcygeal disorders, not elsewhere classified (5) Low back pain: Code(s): M54.50 - Low back pain, unspecified (6) Spondylosis without myelopathy or radiculopathy, lumbar region: Code(s): M47.816 - Spondylosis without myelopathy or radiculopathy, lumbar region Plan The results of diagnostic right sacroiliac joint injection as above are encouraging for right SI joint being the pain generator. SI joint fusion, SI Innerv. PNS and SI joint steriod injection were offered this gentleman procedures to treat his sacroiliac joint pain. He is leaving for [facility], he will be thinking, when he is back he will make an appointment. 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
== END 2023-08-28 10:40 | disposition home or self-care (01) ==
PROVIDERS: PCP Pediatrics; Visit Provider Anesthesiology
DX: M19.042 Primary osteoarthritis, left hand (principal); M46.1 Sacroiliitis, not elsewhere classified; M53.3 Sacrococcygeal disorders, not elsewhere classified; G89.29 Other chronic pain; M54.50 Low back pain, unspecified; M47.816 Spondylosis without myelopathy or radiculopathy, lumbar region
CPT/HCPCS: 99213

== ENCOUNTER → 2023-08-28 10:18 | Outpatient (BNVA) | payer MEDICARE, SELFPAY | PROVIDERS: PCP Pediatrics; Visit Provider Anesthesiology | DX: M19.042 Primary osteoarthritis, left hand (principal); M47.816 Spondylosis without myelopathy or radiculopathy, lumbar region; M54.50 Low back pain, unspecified; M53.3 Sacrococcygeal disorders, not elsewhere classified; M46.1 Sacroiliitis, not elsewhere classified; G89.29 Other chronic pain | CPT/HCPCS: 99212 ==

== ENCOUNTER 2023-09-10 11:01 | Outpatient (AMB) | payer MEDICARE, SELFPAY ==
--- NOTE | 2023-09-10 11:19 | MHC.OFFVIS ---
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 Patient reports years ago having an injury at him [facility] [place], after time his pain decreased however the past month ago his pain has gotten worse. Limited ROM due to pain. No strength and feels weak making it difficult to do any gripping movements. He has occasional numbness in his thumb and tenderness to the touch. No previous tx. Finds temporary relief with topical cream. 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 He reports he sustained an injury at his [facility] [place] which has been worsening since last month. He states he has pain, weakness and limited ROM in his thumb which is aggravated with gripping or grabbing movements like opening a bottle or cutting objects with his left hand. He also c/o occasional numbness and experiences tenderness to touch in his thumb. He finds transient relief with topical cream and mild relief with Tylenol before bed. He has not had any previous treatment. 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 Review of Systems Const All systems reviewed & are unremarkable except as noted in HPI and below Physical Exam Vital Signs: BMI result Body Mass Index 29.0 Const General: cooperative, healthy appearing, comfortable, no acute distress, well developed and alert Orientation/consciousness: patient oriented x3 HEENT Head: Yes normal to inspection, Yes normocephalic and Yes atraumatic Eyes General: appearance normal, both eyes and all related structures Resp Effort & Inspection: normal respiratory effort and able to speak in complete sentences Cardio Rate: regular rate Peripheral pulses: Peripheral pulses 2+ throughout GI Palpation (GI): Soft to palpation Skin Lesions: no lesions Rashes: no rashes Neuro General: patient oriented x3 Extrem Other: left thumb pain at the base of the thumb along the CMC joint. Pain with CMC grind. Negative finklesteins. He is able to make a full fist and fully extend. NVI. Results Reviewed Results Reviewed: Xrays were obtained in the office today and personally reviewed by me of the left hand show mild cmc oa Assessment & Plan Assessment & Plan (1) Osteoarthritis of carpometacarpal (CMC) joint of left thumb: Code(s): M18.12 - Unilateral primary osteoarthritis of first carpometacarpal joint, left hand Qualifiers: Osteoarthritis type: primary Qualified Code(s): M18.12 - Unilateral primary osteoarthritis of first carpometacarpal joint, left hand Plan We discussed options which include steroid injection and bracing. He was given a left comfort cool brace today to use with activities and sleeping to see if this helps with his symptoms. If symptoms persist or worsens, patient will contact the office, otherwise follow-up as needed. Orders: Orders XR hand LT min 3V Today M79.642 - Pain in left hand Patient Instructions: Scribed for Bill Spencer PA-C, by Louie Chen biomedical engineering aide, on 09/10/2023 at 11:15 AM EST. IBill PA-C, have personally reviewed and agree with the information entered by the scribe. Coding Level of Care Code New Pt Level 3 (07792) Diagnoses Primary osteoarthritis of first carpometacarpal joint of left hand M18.12 Osteoarthritis type: primary
[2023-09-10 11:26] VITALS: BMI 29.0
== END 2023-09-10 13:09 | disposition home or self-care (01) ==
PROVIDERS: PCP Pediatrics; Visit Provider Physician Assistant
DX: M18.12 Unilateral primary osteoarthritis of first carpometacarpal joint, left hand (principal)
CPT/HCPCS: 99203

== ENCOUNTER 2023-09-10 15:07 | Outpatient (REF) | payer MEDICARE, SELFPAY ==
--- NOTE | ~2023-09-10 | XR_ITS ---
EXAMINATION: XR HAND, LEFT CLINICAL INFORMATION: Pain in left hand. COMPARISON: None available. TECHNIQUE: 4 views of the left hand. Radiopaque marker placed by technologist to indicate the area of concern as indicated by the patient at the level of the 1st metacarpophalangeal joint. The 2nd, 3rd, 4th and 5th digits are overlapped on the lateral view, greatly limiting evaluation. FINDINGS: The bones are diffusely demineralized. Moderate degenerative changes first carpometacarpal joint with joint space narrowing and hypertrophic change. Moderate degenerative changes in the 1st metacarpophalangeal joint with joint space narrowing and hypertrophic change. Spurring is identified along the distal aspect of the 1st metacarpal. Moderate degenerative changes in the IP joints of the 1st digit/thumb. XR/XR hand LT min 3V IMPRESSION: Moderate degenerative changes as detailed above. Recommend followup imaging in 10-14 days if fracture is suspected.
== END 2023-09-10 15:08 | disposition home or self-care (01) ==
LOC: HO.HOSX 15:07
PROVIDERS: Visit Provider Physician Assistant
DX: M18.12 Unilateral primary osteoarthritis of first carpometacarpal joint, left hand (principal)
CPT/HCPCS: 73130

== ENCOUNTER 2024-02-16 11:04 | Outpatient (REF) | payer MEDICARE, SELFPAY ==
[2024-02-16 12:51] LABS: Prostate Specific Antigen 1.21 ng/mL (<0.05-4.0)
== END 2024-02-16 11:05 | disposition home or self-care (01) ==
LOC: HO.LAB 11:04
PROVIDERS: PCP Pediatrics; Visit Provider Urology
DX: N40.1 Benign prostatic hyperplasia with lower urinary tract symptoms (principal); N13.8 Other obstructive and reflux uropathy; Z12.5 Encounter for screening for malignant neoplasm of prostate
CPT/HCPCS: 36415; 84153

== ENCOUNTER 2024-02-25 10:38 | Outpatient (AMB) | payer MEDICARE, SELFPAY ==
--- NOTE | 2024-02-25 11:22 | A.OFFVIS_ITS ---
Intake Intake Visit Reasons: 6M PSA(set)Confirmed Intake Note: Patient presents today for a follow up on: PSA Meds- None Allergies to Antibiotic- No Known Allergies Blood Thinner- None Post Void Residual: 0ml Buckle Strap Puncher Required: No Accompanied by: Self / Same As Patient Allergies No Known Allergies Allergy (Verified 02/25/24 11:23) HPI HPI Comments History of Present Illness Details Jamir is a pleasant Portugese male. He is a patient of Dr. Boyd. he is seen for the follow-up issues - bladder outlet obstruction - erectile dysfunction Happy with current voiding performance Nocturia x1 down to 4 Significantly improved stream Improved bladder emptying Six-month follow-up from [facility] procedure PSA 02/14 1.2 PVR 0cc Twelve month follow-up PVR PSA Lower urinary tract symptoms Progressive with nocturia 2-3 Feeling of incomplete bladder emptying and weak stream with urinary hesitancy Prior medication combination therapy terazosin 5 mg and finasteride, tamsulosin Concomitant diagnoses include diabetes Bladder ultrasound 12/15 prostate 80 g, residual 50 cc PSA 12/13 2.5 Cystoscopy 12/15 - large oval-shaped prostate - had initial procedure with prostate artery embolization in [facility] - minimal impact GreenLight laser 10/16 Erectile dysfunction Does have good response to Levitra Has muscle cramps with tadalafil and headache with sildenafil Continue vardinafil Will look for generic availability; script provided [facility] Medical History DMII (diabetes mellitus, type 2) Hyperlipidemia HTN (hypertension) Surgical History H/O knee surgery H/O eye surgery H/O cataract extraction Status post right rotator cuff repair Status post left rotator cuff repair History of prostate surgery Social History Alcohol intake: current Alcohol intake frequency: a few times a month Alcohol type: wine Patient Tobacco Use Status: Never used Tobacco Current occupational status: retired 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 Review of Systems Const Denies chills and Denies fever(s) Card Reports no additional complaints and Denies syncope Resp Denies cough GI Denies abdominal pain and Denies heartburn Reports as per HPI and Denies change in libido Neuro Denies syncope Psych Denies change in libido Endo Denies change in libido Physical Exam Const General: cooperative, healthy appearing, comfortable and no acute distress Orientation/consciousness: patient oriented x3 HEENT Face and sinus: Yes normal facial exam Mouth: moist mucous membranes Neck Neck: Yes normal visual inspection, Yes full ROM and Yes trachea midline Chest Chest palpation & inspection: normal inspection of the chest Resp Effort & Inspection: normal respiratory effort, able to speak in complete sentences and no respiratory distress GI Inspection: Yes normal to inspection Back/Spine/Pelvis Cervical Spine: normal cervical lordosis Thoracic/Lumbar Spine: thoracic and lumbar spine normal to inspection Skin General skin exam: no rashes or lesions noted Neuro General: patient oriented x3, gait normal, tone normal and moves all extremities Extrem General: Yes normal to inspection and Yes capillary refill normal Office Procedures Post Void Residual Post Residual Void Post Void Residual (PVR): 0 62543-Oovu Void Residual by ultrasound Assessment & Plan Assessment & Plan (1) BPH w urinary obs/LUTS: Code(s): N40.1 - Benign prostatic hyperplasia with lower urinary tract symptoms; N13.8 - Other obstructive and reflux uropathy (2) Incomplete emptying of bladder due to benign prostatic hyperplasia: Code(s): N40.1 - Benign prostatic hyperplasia with lower urinary tract symptoms; R33.9 - Retention of urine, unspecified Plan Twelve month follow-up Orders: Orders AMB Post Void Residual by ultrasound Today R33.9 - Retention of urine, un specified Prostate Specific Antigen 364 Days N13.8 - Other obstructive and reflux uropathy, N40.1 - Benign prostatic hyperplasia with lower urinary tract symptoms Patient Instructions: Imaging studies, laboratory and physical exam results were discussed and reviewed in detail. No major barriers to patient understanding were identified. An opportunity to ask questions regarding the treatment plan was provided. All questions were answered. The patient expressed understanding and agreement with the above treatment plan. The patient is aware they should contact our office by phone for worsening of their current condition or the appearance of new urologic symptoms. Compliance is encouraged with any medications and followup testing that is ordered. It is a privilege to participate in the urologic care of your patient. If you have any questions or concerns regarding treatment for the above conditions, or other urologic issues, please do not hesitate to contact me. The office telephone contact is [phone]. This note is constructed using voice recognition software. While every effort has been made to ensure accuracy cotton chopper errors may have been included. Yours sincerely, Dr Shamir Hsieh MD, [facility] - Urology Providers of Expert, Compassionate Care for the Genitourinary System Coding Level of Care Code Est Pt Level 3 (50083) Diagnoses BPH w urinary obs/LUTS N40.1; N13.8 Incomplete emptying of bladder due to benign prostatic hyperplasia N40.1; R33.9 CPT Codes Post Residual Void - PVR CPT Code: 67096-Poyo Void Residual by ultrasound ([id number])
== END 2024-02-25 11:42 | disposition home or self-care (01) ==
PROVIDERS: PCP Pediatrics; Visit Provider Urology
DX: N40.1 Benign prostatic hyperplasia with lower urinary tract symptoms (principal); N13.8 Other obstructive and reflux uropathy; R33.9 Retention of urine, unspecified
CPT/HCPCS: 99213

== ENCOUNTER → 2024-02-25 10:38 | Outpatient (BNVA) | payer MEDICARE, SELFPAY | PROVIDERS: PCP Pediatrics; Visit Provider Urology | DX: N40.1 Benign prostatic hyperplasia with lower urinary tract symptoms (principal); N52.9 Male erectile dysfunction, unspecified; N13.8 Other obstructive and reflux uropathy; R33.8 Other retention of urine | CPT/HCPCS: 51798; 99212 ==

== ENCOUNTER 2025-02-24 10:14 | Outpatient (AMB) | payer MEDICARE, SELFPAY ==
--- OUTSIDE RECORDS SUMMARY | 2025-02-24 11:05 | XMS_ITS | Encounter Summary ---
Author Organization [employer] Address [address] [place] [address] [place] [address] Care Team Providers Care Saw Tailer Name Role Phone Rachael Hicks MD Primary Care Provider [phone] Encounter Details Date Type Department Care Team (Late st Contact Info) Description 11/19/2022 Orders Only [facility] [address] [place] [address] Conner Jerry MD [address] [place] [address] Social History Tobacco Use Types Packs/Day Years Used Date Smoking Tobacco: Never Smokeless Tobacco: Never Sex and Gender Information Value Date Recorded Sex Assigned at Male 09/23/2022 10:31 AM EDT Legal Sex Male 10:31 AM EDT Gender Identity Choose not to disclose 10:31 AM EDT Sexual Orientation Straight 09/23/2022 10 :31 AM EDT COVID-19 Exposure Response Date Recorded In the last 10 days, have yo u been in contact with someone who was confirmed or suspected to have Coronavirus/COVID-19? No / Unsure 11/12/2022 10:14 AM EST documented as of this encounter Plan of Treatment Not on file documented as of this encounter Visit Diagnoses Not on filedocumented in this encounter Care Teams Saw Tailer Relationship Specialty Start Date End Date Rachael Hicks MD [address] [place] [address] PCP - General Family Medicine 01/01/17 Chapis Soliman RN Care Manager 09/26/23 12/30/23 documented as of this encounter
--- OUTSIDE RECORDS SUMMARY | 2025-02-24 11:05 | XMS_ITS | Encounter Summary ---
Author Organization [employer] Address [address] [facility] 7 [place] [address] Care Team Providers Care Jeeper Operator Name Role Phone Rachael Hicks MD Primary Care Provider [phone] Reason for Visit * Reason Comments Med Change Request Encounter Details Date Type Department Care Team ([facility] st Contact Info) Description 07/15/2024 Refill [facility] [address] [place] [address] Rachael Hicks MD [address] [place] [address] Social History Tobacco Use Types Packs/Day Years Used Date Smoking Tobacco: Never Passive Smoke Exposure: Never Smokeless Tobacco: Never Alcohol Use Standard Drinks/Week Comments Never 0 (1 standard drink = 0.6 oz pur e alcohol) Depression Answer Date Recorded Patient Health Questionnaire-9 Score 6 07/25/2023 Housing Stability Answer Date Recorded What is your housing situation today? I have re thorne 09/09/[address] you li ve. Do you have problems with any of the following? None of the above 09/09/2023 Food Insecurity Answer Date Recorded Within the past 12 months, y ou worried that your food would run out before you got money to buy more: Never True 09/09/2023 Within the past 12 months,th e food you bought just didn't last and you didn't have enough money to get more: Never True Transportation Answer Date Recorded In the past 12 months, has l ack of transportation kept you from medical appts, meetings, work or from getting things needed for daily living? No 09/09/2023 Utilities Answer Date Recorded In the past 12 months, has t he electric, gas, oil or water company threatened to shut off services in your home? No 09/09/2023 Depression Answer Date Recorded Patient Health Questionnaire-2 Score 4 07/25/2023 Sex and Gender Information Value Date Recorded Sex Assigned at Male 09/23/2022 10:31 AM EDT Legal Sex Male 10:31 AM EDT Gender Identity Choose not to disclose 10:31 AM EDT Sexual Orientation Straight 09/23/2022 10 :31 AM EDT documented as of this encounter Plan of Treatment Not on file documented as of this encounter Visit Diagnoses Not on filedocumented in this encounter Additional Health Concerns Assessment Noted Time PHQ-9 Depression Total Score: 6 07/25/20 23 12:22 PM EDT documented as of this encounter Care Teams Jeeper Operator Relationship Specialty Start Date End Date Rachael Hicks MD [address] [place] [address] PCP - General Family Medicine 01/01/17 documented as of this encounter
--- OUTSIDE RECORDS SUMMARY | 2025-02-24 11:05 | XMS_ITS | Clinical Summary ---
Author Organization [employer] Address [address] [place] [address] 7 [place] [address] Care Team Providers Care Shell Press Operator Name Role Phone Rachael Hicks MD Primary Care Provider [phone] Allergies No known active allergies Medications * This document contains information received from the source organization and may not represent a complete record from that organization. fluticasone (Flovent) 110 MCG/ACT inhalerIndications :SOB (shortness of breath) on exertion Inhale 1 puff in the morning and at bedtime. Rinse mouth with water after use to reduce aftertaste and incidence of candidiasis. Do not swallow. 12 g 11 3 Active albuterol 108 (90 Base) MCG/ACT inhalerIndications :SOB (shortness of breath) on exertion Inhale 2 puffs every 4 (four) hours if needed for wheezing. 18 g 3 Active gabapentin (Neurontin) 100 MG capsule Take 1 capsule (100 mg) by mouth 2 times daily. 60 capsule 3 3 Active losartan-hydroCHLO ROthiazide (Hyzaar) 50-12.5 MG tabletIndications: Type 2 diabetes mellitus without complication, without long-term current use of insulin ([facility]),Benign prostatic hyperplasia, unspecified whether lower urinary tract symptoms present TAKE ONE TABLET BY MOUTH EVERY DAY 30 tablet 11 4 Active metFORMIN XR (Glucophage-XR) 500 MG 24 hr tablet TAKE TWO TABLETS BY MOUTH ONCE DAILY WITH EVENING MEAL DO NOT BREAK, CRUSH, DISSOLVE OR CHEW 60 tablet 11 4 Active FREESTYLE LITE test stripIndications:D iabetes mellitus due to underlying condition with diabetic cataract, without long-term current use of insulin ([facility]),Type 2 diabetes mellitus without complication, without long-term current use of insulin ([facility]) USE TO TEST BLOOD SUGAR ONCE DAILY 100 strip 11 4 Active atorvastatin (Lipitor) 40 MG tabletIndications: Hyperlipidemia, unspecified hyperlipidemia type TAKE ONE TABLET AT BEDTIME 90 tablet 3 5 Active Active Problems Patient Care Coordination No te Formatting of this note migh t be different from the original. C3/CM Chapis Soliman RN Problem Noted Date Diagnosed Date Depression, recurrent 03/24/2024 Diabetes mellitus due to und erlying condition with diabetic cataract, without long-term current use of insulin 03/24/2024 Chronic right-sided low back pain without sciati ca 11/12/2023 Sprain of left ankle 09/16/2023 Benign prostatic hyperplasia with urinary obstru ction 07/25/2023 Central obesity 03/28/2023 Memory difficulties 03/28/2023 Obstructive sleep apnea syndrome 03/28/2023 Type 2 diabetes mellitus wit hout complication, without long-term current use of insulin 12/05/2022 Right thyroid nodule 11/21/2022 Impotence of organic origin 01/01/2017 Mixed anxiety and depressive disorder 01/01/2017 Assessment & Plan (04/11/2023 9:38 AM EDT): Assessment: ?? Patient with mild depressive symptoms in the context of health issues (diabetes, heart condition). Jamir reports no anxiety symptoms today. ?? At this time Jamir Cruz meets criteria for Visit Diagnoses: Problem List Items Addressed This Visit ? Other ?? Mixed anxiety and depressive disorder ?? Patient ready to address current needs Yes ?? Strengths include utilization of coping skills learned. ?? PLAN: 1. Follow up with [facility]: Recommended for follow-up: Patient will be scheduled to see clinician after his PCP appointment 2. Patient goal is to engage in OP therapy, when services begin 3. Behavioral Recommendations a. Patient will continue utilizing coping skills b. Patient will comply with medications c. Patient will reach out to [facility], if needed Moderate visual impairment 01/01/2017 Polyp of colon 01/01/2017 Encounters Date Type Department Care Team Description 02/17/2025 Telephone [facility] MED & PEDS [address] [place] [address] Rachael Hicks MD Lab Orders 02/17/2025 Telephone [facility] MEDICINE [address] [place] [address] Rachael Hicks MD Lab Orders (/) 12/23/2024 Refill [facility] MED & PEDS [address] [place], [place] [phone] Rachael Hicks MD Hyperlipidemia, unspecified hyperlipidemia type 12/22/2024 Telephone [facility] MED & PEDS [address] [place], [place] [phone] Rachael Hicks MD chronic conditions tracking from Last 3 Months Immunizations Name Administration Dates Next Due Influenza High-dose Quadriva lent Preservative Free 09/11/2023,09/27/2021,09/12/2020 Influenza injectable quadriv alent IIV4 with preservative 12/05/2022,10/07/2017 Influenza, Unspecified 10/24/2022 Pfizer Covid-19 Vaccine 12+ 09/11/2023 Pfizer Covid-19 Vaccine 12+ Bivalent 01/10/2023 Pneumococcal Conjugate PCV 13 10/07/2017 SARS-CoV-2, Unspecified 12/25/2022 Social History Tobacco Use Types Packs/Day Years Used Date Smoking Tobacco: Never Passive Smoke Exposure: Never Smokeless Tobacco: Never Tobacco Cessation:Counseling Given: Not Answered Alcohol Use Standard Drinks/Week Comments Never 0 (1 standard drink = 0.6 oz pur e alcohol) Depression Answer Date Recorded Patient Health Questionnaire-9 Score 6 07/25/2023 Housing Stability Answer Date Recorded What is your housing situation today? I have rerosario thorne 09/09/[address] you [...] Orientation Straight 09/23/2022 10 :31 AM EDT Last Filed Vital Signs Vital Sign Reading Time Taken Comments Blood Pressure 135/72 06/29/2024 3:50 PM EDT Pulse 65 06/29/2024 3:50 PM EDT Temperature 36.5 ??C (97.7 ??F) 06/29/2024 3:50 PM ED T Respiratory Rate 16 06/29/2024 3:50 PM EDT Oxygen Saturation 98% 06/29/2024 3:50 PM EDT Inhaled Oxygen Concentration - - Weight 84.1 kg (185 lb 6.4 oz) 06/29/2024 3:50 P M EDT Height 166 cm (5' 5.35 ) 03/24/2024 9:50 AM EDT Body Mass Index 30.52 03/24/2024 9:50 AM EDT Plan of Treatment Health Maintenance Due Date Last Done Comments Diabetes: Foot Exam 1959 Eye Exam 1959 Alcohol/Substance Use Screening 1961 Hepatitis C Screening 1967 DTaP/Tdap/Td Vaccines (1 - Tdap) 01/25/1968 Zoster Vaccines (1 of 2) 1999 Pneumococcal Vaccine: 50+ Years (2 of 2 - PPSV23) 12/02/2017 10/07/2017 Diabetes: Urine Protein Screening 09/27/2022 09/27/2021 Lipid Panel 09/27/2022 09/27/2021 RSV Patients and Patients Aged 60 years or older (1 - 1-dose 75+ series) 01/25/2024 COVID-19 Vaccine ( season) 2024 09/11/2023, 01/10/2023, 12/25/2022, Additional history exists Depression Screening 07/25/2024 07/25/2023, 07/25/20 23 Diabetes: Hemoglobin A1C 09/24/2024 024, 09/16/2023, 05/28/2023, Additional history exists SDOH Screening 03/17/2025 03/17/2024 Tobacco Screening 03/24/2025 03/24/2024 Colonoscopy Discontinued 04/30/2021 Colorectal Cancer Screening Discontinued Influenza Vaccine Completed 11/04/2024, , 09/11/2023, Additional history exists CT Colonography Discontinued FIT DNA/Cologuard Discontinued FIT Discontinued FOBT Discontinued HIB Vaccines Aged Out No longer eligi ble based on patient's age to complete this topic HPV Vaccines Aged Out No longer eligi ble based on patient's age to complete this topic Hepatitis A Vaccines Aged Out No long er eligible based on patient's age to complete this topic Hepatitis B Vaccines Aged Out No long er eligible based on patient's age to complete this topic IPV Vaccines Aged Out No longer eligi ble based on patient's age to complete this topic Meningococcal Vaccine Aged Out No jerad renetta eligible based on patient's age to complete this topic RSV under 20 months Aged Out No longe r eligible based on patient's age to complete this topic Rotavirus Vaccines Aged Out No longer eligible based on patient's age to complete this topic Sigmoidoscopy Discontinued Procedures Procedure Name Priority Date/Time Associated Diagnosis Comments POCT GLYCATED HEMOGLOBIN, TOTAL Routine 03/24/2024 10:10 AM EDT Diabetes mellitus due to underlying condition with diabetic cataract, without long-term current use of insulin ([facility]) ALBUMIN, RANDOM URINE W/CREATININE Routine 09/27/2021 9:56 AM EDT LIPID PANEL, STANDARD Routine 09/27/2021 9:56 AM EDT HM COLONOSCOPY Routine 04/30/2021 from Last 3 Months or Most Recently Relevant to Health Maintenance Results * (ABNORMAL) POCT HGB A1C (03/24/2024 10:10 AM EDT) Hemoglobin A1C 6.7(A) 4.0 - 6.0 % QC Media Lot # [id number] Lot# Expiration Date ,445 Blood 03/24/2024 10:1 0 AM EDT Rachael Hicks MD POINT OF CARE TEST ENTER/EDIT ORDERABLES Final Result * ALBUMIN, RANDOM URINE W/CREATININE (09/27/2021 9:56 AM EDT) Microalbumin Urine 2.2 See Note: mg/dL [facility] Comment: Reference Range: ?? Reference Range Not established Microalb/Creat Ratio 23 <30 mcg/mg creat [facility] Comment: ?? The ADA defines abnormalities in albumin excretion as follows: ?? Albuminuria Category ?Result (mcg/mg creatinine) ?? Normal to Mildly increased ?? <30 Moderately increased ? 30-299 ?? Severely increased ? > OR = 300 ?? The ADA recommends that at least two of three specimens collected within a 3-6 month period be abnormal before considering a patient to be within a diagnostic category. Creatinine, Urine 95 20 - 320 mg/dL [facility] 09/27/2021 9:56 AM EDT Rachael Hicks MD LAB URINE ORDERABLES Final Re sult [facility] [address] * LIPID PANEL, STANDARD (09/27/2021 9:56 AM EDT) Chol/HDLC Ratio 3.3 <5.0 (calc) [facility] Cholesterol, Total 143 <200 mg/dL [facility] HDL Cholesterol 44 > OR = 40 mg/dL [facility] LDL Cholesterol 80 mg/dL (calc) [facility] Comment: Reference range: <100 ?? Desirable range <100 mg/dL for primary prevention; ?? <70 mg/dL for patients with CHD or diabetic patients ?? with > or = 2 CHD risk factors. ?? LDL-C is now calculated using the Yanira ?? calculation, which is a validated novel method providing ?? better accuracy than the Friedewald equation in the ?? estimation of LDL-C. ?? Remy MARCIAL et al. KIRSTIE. 2013;310(19): 7154-9312 ?? (http://[employer]/faq/KYD653) Non-HDL Cholesterol 99 <130 mg/dL (calc) [facility] Comment: For patients with diabetes plus 1 major ASCVD risk ?? factor, treating to a non-HDL-C goal of <100 mg/dL ?? (LDL-C of <70 mg/dL) is considered a therapeutic ?? option. Triglycerides 105 <150 mg/dL [facility] 09/27/2021 9:56 AM EDT Rachael Hicks MD LAB BLOOD ORDERABLES Final Re sult [facility] [address] * Colonoscopy (04/30/2021) Colonoscopy Normal Normal Narrative Magalys Chatterjee - 04/30/2021 Recommended 5-7 year follow up Historical Provider HEALTH MAINTENANCE Final Result from Last 3 Months or Most Recently Relevant to Health Maintenance Insurance MEDICARE [facility] MED[facility] C[facility] Care Teams Shell Press Operator Relationship Specialty Start Date End Date Rachael Hicks MD [address] [place] [id number] PCP - General Family Medicine 01/01/17
--- OUTSIDE RECORDS SUMMARY | 2025-02-24 11:05 | XMS_ITS | Encounter Summary ---
Author Organization [employer] Address [address] [facility] [address]t [place] [address] Care Team Providers Care Social Staff Worker Name Role Phone Rachael Hicks MD Primary Care Provider [phone] Encounter Details Date Type Department Care Team (Late st Contact Info) Description 09/30/2023 Abstract [facility] MEDICINE [address] [place] [address] Rachael Hicks MD [address] [place] [address] Social History Tobacco Use Types Packs/Day Years [...] on file documented as of this encounter Procedures Procedure Name Priority Date/Time Associated Diagnosis Comments COLONOSCOPY Routine 04/30/2021 documented in this encounter Results * Colonoscopy (04/30/2021) Colonoscopy Normal Normal Narrative Magalys Chatterjee - 04/30/2021 Recommended 5-7 year follow up Historical Provider HEALTH MAINTENANCE Final Result documented in this encounter Visit Diagnoses Not on filedocumented in this encounter Additional Health Concerns Assessment Noted Time PHQ-9 Depression Total Score: 6 07/25/20 23 12:22 PM EDT documented as of this encounter Care Teams Social Staff Worker Relationship Specialty Start Date End Date Rachael Hicks MD [address] [place] [id number] PCP - General Family Medicine 01/01/17 Chapis Soliman weather anchor 09/26/23 12/30/23 documented as of this encounter
--- OUTSIDE RECORDS SUMMARY | 2025-02-24 11:06 | XMS_ITS | Clinical Summary ---
Author Organization Located [facility] Address [address] [address] Phone Care Team Providers Care Equalizing Saw Operator Name Role Phone Conner Jerry MD Primary Care Provider Remaa ble Social History Tobacco Use Types Packs/Day Years Used Date Smoking Tobacco: Never Assessed Education Answer Date Recorded Are you interested in more education? Not on shaan e 03/20/2023 Are you concerned about learning? Not on file 03/20/2023 No 03/20/2023 No 03/20/2023 Digital Access Answer Date Recorded No 04/21/2023 No 04/21/2023 No 04/21/2023 Reliable internet access at home? Not on file 04/21/2023 Device with a working camera? Not on file Sex and Gender Information Value Date Recorded Sex Assigned at Male 11/28/2022 3:19 PM EST Gender Identity Male 11/28/2022 3:19 PM EST Sexual Orientation Straight 11/28/2022 3: 19 PM EST Last Filed Vital Signs Vital Sign Reading Time Taken Comments Blood Pressure 136/70 03/06/2023 9:25 AM EDT Pulse 67 03/06/2023 9:25 AM EDT Temperature 36.7 ??C (98 ??F) 03/06/2023 9:25 AM EDT Respiratory Rate 18 03/06/2023 9:25 AM EDT Oxygen Saturation 98% 03/06/2023 9:25 AM EDT Inhaled Oxygen Concentration - - Weight 85.3 kg (188 lb) 03/06/2023 9:25 AM EDT Height 167.6 cm (5' 6 ) 03/06/2023 9:25 AM EDT Body Mass Index 30.34 03/06/2023 9:25 AM EDT Plan of Treatment Health Maintenance Due Date Last Done Comments Adult Td,Tdap Booster 1950 LIPID PANEL 1950 SMOKING Hx and SMOKELESS TOBACCO SCREENING 1962 HEPATITIS C SCREENING 1967 ZOSTER VACCINES (1 of 2) 1999 PNEUMOCOCCAL VACCINES (50+ years) (2 of 2 - PPSV23) 10/07/2018 10/07/2017 RSV VACCINE (1 - 1-dose 75+ series) 01/25/2024 DEPRESSION SCREENING 03/06/2024 03/06/2023 INFLUENZA VACCINE (#1) 2024 , 10/24/2022, 09/27/2021, Additional history exists COVID-19 VACCINE ( season) 2024 01/10/2023, 12/25/2022, 05/30/2022, Additional history exists HEPATITIS A VACCINES Aged Out No long er eligible based on patient's age to complete this topic HIB VACCINES Aged Out No longer eligi ble based on patient's age to complete this topic MENINGOCOCCAL VACCINES (ACWY) Aged Out No longer eligible based on patient's age to complete this topic Medical Devices Not on file Care Teams Equalizing Saw Operator Relationship Specialty Start Date End Date Conner Jerry MD [address] [place] [id number] PCP - General Emergency Medicine 11/28/22 Additional Source Comments The information contained in this document represents components of the legal health record. It is not the complete legal health record.Located [facility]
--- OUTSIDE RECORDS SUMMARY | 2025-02-24 11:06 | XMS_ITS | Encounter Summary ---
Author Organization [employer] Address [address] [facility] [address] [place] [address] Care Team Providers Care Floor Steward/Stewardess Name Role Phone Rachael Hicks MD Primary Care Provider [phone] Encounter Details Date Type Department Care Team ([facility] st Contact Info) Description 06/07/2024 Orders Only [facility] MED & PEDS [address] [place], [place] [phone] ProviderMaximino MD Social History Tobacco Use Types Packs/Day Years [...] Procedure Name Priority Date/Time Associated Diagnosis Comments EMG Routine 06/04/2024 8:55 AM EDT documented in this encounter Results * EMG (06/04/2024 8:55 AM EDT) us Historical Provider NEUROLOGY ORDERABLES Raya l Result documented in this encounter Visit Diagnoses Not on filedocumented in this encounter Additional Health Concerns Assessment Noted Time PHQ-9 Depression Total Score: 6 07/25/20 23 12:22 PM EDT documented as of this encounter Care Teams Floor Steward/Stewardess Relationship Specialty Start Date End Date Rachael Hicks MD [address] [place] [id number] PCP - General Family Medicine 01/01/17 documented as of this encounter
--- OUTSIDE RECORDS SUMMARY | 2025-02-24 11:06 | XMS_ITS | Encounter Summary ---
Author Organization [employer] Address [address] [place] [address] 7t [place] [address] Care Team Providers Care Messenger Office Name Role Phone Rachael Hicks MD Primary Care Provider [phone] Encounter Details Date Type Department Care Team ([facility] st Contact Info) Description 03/25/2024 Orders Only [facility] MED & PEDS [address] [place], [place] [phone] Rachael Hicks MD [address] [place] [address] Social History Tobacco Use Types Packs/Day Years [...] documented as of this encounter Care Teams Messenger Office Relationship Specialty Start Date End Date Rachael Hicks MD [address] [place] [address] PCP - General Family Medicine 01/01/17 documented as of this encounter
--- NOTE | 2025-02-24 11:11 | A.OFFVIS_ITS ---
Intake Visit Reasons: 1 yr follow up/ PVR/PSA Intake Note: Patient presents today for a 1Y follow up on: PSA/PVR Meds- None Allergies to Antibiotic- No Known Allergies Blood Thinner- None Post Void Residual: 0ml TODAY'S PVR:13ML'S Bushel Worker Required: No Accompanied by: Self / Same As Patient Allergies No Known Allergies Allergy (Verified 02/24/25 11:12) HPI Comments Details: Jamir is a pleasant Portugese male. He is a patient of Dr. Boyd. he is seen for the follow-up issues - bladder outlet obstruction - erectile dysfunction Happy with current voiding performance Nocturia x1 down to 4 Significantly improved stream Improved bladder emptying Six-month follow-up from [facility] procedure PSA 02/14 1.2 PVR 17 cc Twelve month follow-up PVR PSA Lower urinary tract symptoms Progressive with nocturia 2-3 Feeling of incomplete bladder emptying and weak stream with urinary hesitancy Prior medication combination therapy terazosin 5 mg and finasteride, tamsulosin Concomitant diagnoses include diabetes Bladder ultrasound 12/15 prostate 80 g, residual 50 cc PSA 12/13 2.5, 02/14 1.2, 02/15 1.1 Cystoscopy 12/15 - large oval-shaped prostate - had initial procedure with prostate artery embolization in [facility] - minimal impact [facility]Light laser 10/16 Erectile dysfunction Does have good response to Levitra Has muscle cramps with tadalafil and headache with sildenafil Continue vardinafil Will look for generic availability; script provided [facility] Medical History DMII (diabetes mellitus, type 2) Hyperlipidemia HTN (hypertension) Surgical History H/O knee surgery H/O eye surgery H/O cataract extraction Status post right rotator cuff repair Status post left rotator cuff repair History of prostate surgery Social History (Reviewed 02/25/24 @ 11:23 by TESFAYE Redd Alcohol intake: current Alcohol intake frequency: a few times a month Alcohol type: wine Patient Tobacco Use Status: Never used Tobacco Current occupational status: retired 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 Review of Systems Const Denies chills and Denies fever(s) Card Reports no additional complaints and Denies syncope Resp Denies cough GI Denies abdominal pain and Denies heartburn Reports as per HPI and Denies change in libido Neuro Denies syncope Psych Denies change in libido Endo Denies change in libido Physical Exam Const General: cooperative, healthy appearing, comfortable and no acute distress Orientation/consciousness: patient oriented x3 HEENT Face and sinus: Yes normal facial exam Mouth: moist mucous membranes Neck Neck: Yes normal visual inspection, Yes full ROM and Yes trachea midline Chest Chest palpation & inspection: normal inspection of the chest Resp Effort & Inspection: normal respiratory effort, able to speak in complete sentences and no respiratory distress GI Inspection: Yes normal to inspection Back/Spine/Pelvis Cervical Spine: normal cervical lordosis Thoracic/Lumbar Spine: thoracic and lumbar spine normal to inspection Skin General skin exam: no rashes or lesions noted Neuro General: patient oriented x3, gait normal, tone normal and moves all extremities Extrem General: Yes normal to inspection and Yes capillary refill normal Office Procedures Post Void Residual Post Residual Void Post Void Residual (PVR): 13 [id number] Void Residual by ultrasound Results AMB Urinalysis, Automated UA Leukoctes 0 Noemí/uL Last Edit by LEIDA Kirk on 02/24/25 11:21 UA Nitrite Negative Last Edit by LEIDA Kirk on 02/24/25 11:21 UA Urobilinogen 0.2 mg/dL Last Edit by LEIDA Kirk on 02/24/25 11:2 1 UA Protein 0 mg/dL Last Edit by LEIDA Kirk on 02/24/25 11:21 UA pH 6.0 Last Edit by LEIDA Kirk on 02/24/25 11:21 UA Blood 0 Bassam/uL Last Edit by LEIDA Kirk on 02/24/25 11:21 UA Specific [place] 1.015 Last Edit by LEIDA Kirk on 02/24/25 11: 21 UA Ketone Negative Last Edit by LEIDA Kirk on 02/24/25 11:21 UA Bilirubin 0 mg/dL Last Edit by LEIDA Kirk on 02/24/25 11:21 UA Glucose 0 mg/dL Last Edit by LEIDA Kirk on 02/24/25 11:21 Results Reviewed Results Reviewed: Laboratory Last Values Urine pH (Auto) 6.0 02/24/25 11:19 Specific [place] (Auto) 1.015 02/24/25 11:19 Urine Protein (Auto) 0 mg/dL 02/24/25 11:19 Glucose (UA)(Auto) 0 mg/dL 02/24/25 11:19 Urine Ketones (Auto) Negative 02/24/25 11:19 Urine Blood (Auto) 0 Bassam/uL 02/24/25 11:19 Urine Nitrite (Auto) Negative 02/24/25 11:19 Urine Bilirubin (Auto) 0 mg/dL 02/24/25 11:19 Urine Urobilinogen (Auto) 0.2 mg/dL 02/24/25 11:19 Leukocyte Esterase (Auto) 0 Noemí/uL 02/24/25 11:19 Assessment & Plan Assessment & Plan (1) BPH w urinary obs/LUTS: Code(s): N40.1 - Benign prostatic hyperplasia with lower urinary tract symptoms; N13.8 - Other obstructive and reflux uropathy Category: Medical (2) Erectile dysfunction associated with type 2 diabetes mellitus: Code(s): E11.69 - Type 2 diabetes mellitus with other specified complication; N52.1 - Erectile dysfunction due to diseases classified elsewhere Category: Medical Plan Month follow-up PSA and PVR Orders: Orders AMB Urinalysis Automated Today Z13.9 - Encounter for screening, unspecified Prostate Specific Antigen 12 Months N13.8 - Other obstructive and reflux uro natali, N40.1 - Benign prostatic hyperplasia with lower urinary tract symptoms Patient Instructions: This note is constructed using voice recognition software. While every effort has been made to ensure accuracy chainstitch hemmer errors may have been included. Imaging studies, laboratory and physical exam results were discussed and reviewed in detail. No major barriers to patient understanding were identified. An opportunity to ask questions regarding the treatment plan was provided. All questions were answered. The patient expressed understanding and agreement with the above treatment plan. The patient is aware they should contact our office by phone for worsening of their current condition or the appearance of new urologic symptoms. Compliance is encouraged with any medications and followup testing that is ordered. It is a privilege to participate in the urologic care of your patient. If you have any questions or concerns regarding treatment for the above conditions, or other urologic issues, please do not hesitate to contact me. The office telephone contact is [phone]. Sincerely, Dr Shamir Hsieh MD, [facility] - Urology Compassionate Specialist Care for the Genitourinary System Coding Level of Care Code Est Pt Level 4 (39465) Diagnoses BPH w urinary obs/LUTS N40.1; N13.8 Erectile dysfunction associated with type 2 diabetes mellitus E11.69; N52.1 CPT Codes Post Residual Void - PVR CPT Code: 84038-Tfer Void Residual by ultrasound ([id number])
== END 2025-02-24 11:45 | disposition home or self-care (01) ==
PROVIDERS: PCP Pediatrics; Visit Provider Urology
DX: N40.1 Benign prostatic hyperplasia with lower urinary tract symptoms (principal); N13.8 Other obstructive and reflux uropathy; E11.69 Type 2 diabetes mellitus with other specified complication; N52.1 Erectile dysfunction due to diseases classified elsewhere; Z13.9 Encounter for screening, unspecified
CPT/HCPCS: 99214

== ENCOUNTER → 2025-02-24 10:14 | Outpatient (BNVA) | payer MEDICARE, SELFPAY | PROVIDERS: PCP Pediatrics; Visit Provider Urology | DX: N40.1 Benign prostatic hyperplasia with lower urinary tract symptoms (principal); N13.8 Other obstructive and reflux uropathy; E11.69 Type 2 diabetes mellitus with other specified complication; N52.1 Erectile dysfunction due to diseases classified elsewhere | CPT/HCPCS: 51798; 81003; 99212 ==

== ENCOUNTER 2025-11-01 13:34 | Outpatient (REF) | payer MEDICARE, SELFPAY ==
[2025-11-01 14:55] LABS: Appearance Urine Clear; Glucose Urine UA Negative (Negative); PH 5.5 (5.0-9.0); Specific Gravity - Urine <= 1.005 (1.005-1.025); UMIC TRIGGER UA YES
--- OUTSIDE RECORDS SUMMARY | 2025-11-01 19:09 | XMS_ITS | Data Portability ---
Author Organization [facility], [facility] [place] Address [address] [place] [address] Care Team Providers Care Gym Attendant Name Role Phone MARLENE LOVE Primary Care Provider Assessment No assessment recorded. Plan of Treatment Reminders Order Date Submit Date Provider Last Modified By Organization Details Last Modified Time Details Appointments None recorded. Lab None recorded. Referral physical therapist referral - (THIS PRESCRIPTIO N EXPIRES 30 DAYS FROM DATE LISTED) PHYSICAL THERAPY REFERRAL S/P SURGERY ICD-10: M70.61 (right), M70.62(Left ), M70.60(Bila teral) 1. Core stabilizati on, hip abductor strengtheni ng with focus on eccentric strengtheni ng and balance training. 2. Soft tissue modalities including foam rollers as needed. 3. Home exercise and stretching program. Allow 2-3 visits a week for 6 weeks. Completed by: CA 2023 024 [email or web address] Not available 4 21:19:29 physical therapist referral - (THIS PRESCRIPTIO N EXPIRES 30 DAYS FROM DATE LISTED) PHYSICAL THERAPY REFERRAL ICD-10: M70.61 (right), Right hip bursitis 1. Core stabilizati on, hip abductor strengtheni ng with focus on eccentric strengtheni ng and balance training. 2. Soft tissue modalities including foam rollers as needed. 3. Home exercise and stretching program. Allow 2-3 visits a week for 6 weeks. Completed by: tiffany 2023 024 [email or web address] Not available 4 15:38:32 Procedures None recorded. Surgeries None recorded. Imaging XR, knee, 4 or more view - room 102 bilateral knee 4v cw 2023 024 [email or web address] [facility], [address], [address], [place], [address], 4 08:53:53 XR, hip, unilateral, 2 or 3 view - rm 216//right hip pain 2023 024 [email or web address] [facility], [address], [address], [place], [address], 4 12:56:33 Medication Orders None recorded. Patient TargetsNo targets recorded. Patient InstructionsNo instructions recorded. Reason for Referral Physical Therapist Referral for Trochanteric bursitis of right hip (THIS PRESCRIPTION EXPIRES 30 DAYS FROM DATE LISTED)PHYSICAL THERAPY REFERRALICD-10: M70.61 (right), Right hip bursitis1. Core stabilization, hip abductor strengthening with focus on eccentric strengthening and balance training.2. Soft tissue modalities including foam rollers as needed.3. Home exercise and stretching program.Allow 2-3 visits a week for 6 weeks.Completed by: tiffany Referring Physician: Jessica Sheppard, Orthopedic Surgery, [id number] Encounter Date: 04/30/2024 Physical Therapist Referral for Trochanteric bursitis of right hip (THIS PRESCRIPTION EXPIRES 30 DAYS FROM DATE LISTED)PHYSICAL THERAPY REFERRAL S/P SURGERYICD-10: M70.61 (right), M70.62(Left), M70.60(Bilateral)1. Core stabilization, hip abductor strengthening with focus on eccentric strengthening and balance training.2. Soft tissue modalities including foam rollers as needed.3. Home exercise and stretching program.Allow 2-3 visits a week for 6 weeks.Completed by: KR Referring Physician: Qiana Mobley, Orthopedic Surgery, Encounter Date: 09/13/2024 Results Created Date Observation Date Name Description Value Unit Range Abnormal Flag Note LastModifiedBy Organization Detail LastModifiedTime 04/30/20 24 04/30/2024 XR, hip, unila teral , 2 or 3 view http:/ [email or web address] ?Encry pted=s hAaTro YD8dLq bEUv6g %2BXZw aYqtaq 0bqfl% 2Fg9IQ a4ajBk vP9nXo QUaueC m3YtLR FvZlgJ JJ8mAn HZtai3 7m3908 AC0Kua H%2BCV aXeUC8 mr84%3 D INTERFACE [facility] [address], [place], [address], 04/30/2024 10:12:19 04/30/20 24 04/30/2024 XR, hip, unila teral , 2 or 3 view http:/ [email or web address] ?Encry pted=s hAaTro YD8dLq bEUv6g %2BXZw aYqtaq 0bqfl% 2Fg9IQ a4ajBk vP9nXo QUaueC m3YtLR FvZl JJ8mAn HZtai3 1c4204 AC0Kua H%2BCV aXeUC8 mr84%3 D INTERFACE [facility] [address], [place], [address], 04/30/2024 10:12:20 06/04/20 24 06/04/2024 nerve condu ction study /EMG, lower extre mity (PROC ) No observ ation record ed. [facility] [place] [facility] [address] [facility], [place], [address], 06/06/2024 22:18:54 07/21/20 24 07/21/2024 XR, knee, 4 or more view http:/ [email or web address] ?Encry pted=s hAaTro YD8dLq bEUv6g %2BXZw aYqtaq 0bqfl% 2Fg9IQ a4ajBk vP9nXo QUaueC m3YtLR FvZlgJ JJ8mAn HZtai3 8s5924 AC0Krb 32CWaf eUC8mr 84%3D INTERFACE [facility] [address], [place], [address], 07/21/2024 15:40:21 07/21/20 24 07/21/2024 XR, knee, 4 or more view [email or web address] ?Encry pted=s hAaTro YD8dLq bEUv6g %2BXZw aYqtaq 0bqfl% 2Fg9IQ a4ajBk vP9nXo QUaueC m3YtLR FvZlgJ JJ8mAn HZtai3 0n9768 AC0Krb 32CWaf eUC8mr 84%3D INTERFACE [facility] [address] [facility] [address], [place], [address], 07/21/2024 15:40:22 07/24/20 24 01/05/2024 imagi ng/di agnos tic resul t No observ ation record ed. [email or web address] Not Available 06/26 01:37:21 07/24/20 24 04/21/2019 imagi ng/di agnos tic resul t No observ ation record ed. [email or web address] Not Available 06/26 01:37:27 07/24/20 24 04/15/2019 imagi ng/di agnos tic resul t No observ ation record ed. [email or web address] Not Available 06/26 01:37:28 Result Notes Documentation Provider Name and Address Organization Details Recorded Time Xr, Hip, Unilateral, 2 Or 3 View : [email or web address] Encrypted=hxBpRgnAF3rKbsX Uv6g%0HAHkuHhtzl2mhzc%2Fg 2EVx0vzOvdD6cTwSBwsyTr0Ce SREcMyzKVX3aBpEAjhp72o979 9LO7ZatJ%3QTQoWtEI4ye60%3 D Not Available [facility] 04/30/2024 10:12:19 Xr, Hip, Unilateral, 2 Or 3 View : [email or web address] Encrypted=osIfJkpRS9aYtuC Uv6g%0EBFqmDwdnp2fiok%2Fg 7GXj8uqIngG2pShXHlwrBb6Ew RWOiSqhPJZ2kIhKPldv02v612 9TQ7CoxF%4VQAjJbVU1dz10%3 D Not Available [facility] 04/30/2024 10:12:21 Xr, Knee, 4 Or More View : [email or web address] Encrypted=daNhWqhYG5kHpmX Uv6g%8XZXgjBbmau2yvoy%2Fg 1HDy5wqMbvM8tLqUQrroLy9Th NFGgIhaVDH9aBdMAhut96w049 4WW1Lnc80LLfosVK6qy69%3D Not Available [facility] 07/21/2024 15:4 0:21 Xr, Knee, 4 Or More View : [email or web address] Encrypted=rkKrVgpYB2pRpcJ Uv6g%5CBSqdUxtxg5jgzq%2Fg 4YRz7csEzpC0cPfHKhvmQn1Sf KQTpVobZNY4kOsOAkjn66b456 0YG0Nvm43EJircUO4tn92%3D Not Available [facility] 07/21/2024 15:4 0:23 Problems Name Problem SNOMED Code Status Onset Date Resolution Date Notes Provider Name and Address Organization Details Recorded Time Pain of left knee joint 6064849538257 07 Active 2023 egypt chowdhuryorion ocasio [facility] 4 15:31:28 Trochanteri c bursitis of right hip 2739914512612 00 Active 2023 KAYLIA L'HEUREUX ninfa [facility] 4 14:42:39 Inflammatio n of sacroiliac joint 18079668 Active 2023 KAYLIA L'HEUREUX ninfa [facility] 4 14:42:46 Problem Notes None recorded. Procedures Surgical History Date Name Laterality Status Provider Name and Address Organization Details Recorded Time 5 JZHip Inj completed Qiana Mobley PA-C [address], [place], [address], [facility] 04/29/2025 15:35:25 5 Hip Kenalog 1cc Injection, L/R cancelled Qiana Mobley PA-C [address], [place], [address], [facility] 01/18/2025 12:39:16 4 Hip Kenalog 1cc Injection, L/R completed Qiana Mobley PA-C [address], [place], [address], [facility] 09/13/2024 14:47:57 4 Knee Kenalog 40 1cc Injection, Bilateral completed Jessica Sheppard PA-C [address], [place], [address], [facility] 07/21/2024 16:28:15 4 Hip Kenalog 1cc Injection, L/R completed Jessica Sheppard PA-C [address] [facility], [place], [address], [facility] 05/02/2024 08:15:37 Imaging Results None recorded. Procedure Notes None recorded. Medical Equipment None Reported. Allergies No known drug allergies Medications Name Sig Start Date Stop Date Status Note LastModified by Organization Details LastModified Time terazosin 5 mg capsule TAKE 1 CAPSULE BY MOUTH AT BEDTIME active Not Available Not Available No t Available atorvastati n 40 mg tablet TAKE 1 TABLET BY MOUTH EVERY DAY active Not Available Not Available No t Available metformin 500 mg tablet TAKE 1 TABLET BY MOUTH TWICE A DAY active Not Available Not Available No t Available azithromyci n 250 mg tablet TAKE 2 TABLETS BY MOUTH TODAY, THEN TAKE 1 TABLET DAILY FOR 4 DAYS DIRECTED 08/27 completed Not Available Not Available Not Available sulfamethox azole 400 mg-trimetho prim 80 mg tablet TAKE 1 TABLET BY MOUTH EVERY DAY 07/21 completed Not Available Not Available Not Available prednisone 20 mg tablet TAKE 1 TABLET BY MOUTH TWICE A DAY FOR 5 DAYS active Not Available Not Available No t Available meclizine 12.5 mg tablet TAKE 1 TABLET BY MOUTH 3 TIMES A DAY,X14 DAYS, NEEDED FOR MOTION SICKNESS active Not Available Not Available No t Available fexofenadin e 180 mg tablet TAKE 1 TABLET BY MOUTH EVERY DAY active Not Available Not Available No t Available meloxicam 7.5 mg tablet TAKE 1 TABLET BY MOUTH EVERY DAY 07/21 completed Not Available Not Available Not Available tamsulosin 0.4 mg capsule TAKE 1 CAPSULE BY MOUTH EVERY DAY 07/21 completed Not Available Not Available Not Available meclizine 25 mg tablet TAKE ONE TABLET THREE TIMES DAILY NEEDED FOR DIZZINESS 07/21 completed Not Available Not Available Not Available oseltamivir 75 mg capsule TAKE 1 CAPSULE BY MOUTH TWICE A DAY FOR 5 DAYS active Not Available Not Available No t Available gabapentin 300 mg capsule TAKE 1 CAPSULE BY MOUTH 3 TIMES A DAY active Not Available Not Available No t Available gabapentin 100 mg capsule Take 1 capsule 3 times a day by oral route. active Not Available Not Available No t Available ibuprofen 600 mg tablet TAKE 1 TABLET BY MOUTH EVERY 8 HOURS,X5 DAYS 07/21 completed Not Available Not Available Not Available losartan 50 mg-hydrochl orothiazide 12.5 mg tablet TAKE 1 TABLET BY MOUTH EVERY DAY active Not Available Not Available No t Available celecoxib 100 mg capsule TAKE ONE CAPSULE TWICE DAILY WITH FOOD NEEDED FOR PAIN 07/21 completed Not Available Not Available Not Available metformin ER 500 mg tablet,exte nded release 24 hr TAKE TWO TABLETS BY MOUTH ONCE DAILY WITH DINNER DO NOT BREAK, CRUSH, DISSOLVE OR CHEW active Not Available Not Available No t Available finasteride 5 mg tablet TAKE 1 TABLET BY MOUTH DAILY ON FRIDAY, FRIDAY AND 07/21 completed Not Available Not Available Not Available naproxen 500 mg tablet 07/21 completed Not Available Not Available Not Available amoxicillin 875 mg-potassiu m clavulanate 125 mg tablet TAKE 1 TABLET BY MOUTH EVERY 12 HOURS FOR 10 DAYS 08/27 completed Not Available Not Available Not Available Vitamin B Complex C W/B-12 tablet Take by oral route. active Not Available Not Available No t Available vardenafil 20 mg tablet TAKE ONE TABLET BY MOUTH EVERY DAY NEEDED FOR SEXUAL ACTIVITY FOR 30 DAYS active Not Available Not Available No t Available Flovent HFA 110 mcg/actuati on aerosol inhaler INHALE 1 PUFF TWICE DAILY IN THE MORNING AND AT BEDTIME RINSE MOUTH AFTER USE active Not Available Not Available No t Available Fish Oil active Not Available Not Avai lable Not Available Iron (ferrous sulfate) active Not Available Not Available Not Available apple cider vinegar active Not Available Not Available Not Available Daily Multi-Vitam in active Not Available Not Available Not Available garlic extract active Not Available Not Available Not Available FreeStyle Lite Strips TEST BLOOD SUGAR ONCE DAILY active Not Available Not Available No t Available diclofenac 1 % topical gel 07/21 completed Not Available Not Available Not Available Bepreve 1.5 % eye drops active Not Available Not Available Not Available B12 active Not Available Not Availa ble Not Available Vitals Date Recorded Body height Body mass index (BMI) Body weight Provider Name and Address Organization Details Last Updated DateTime 04/29/2025 170.18 cm 29 kg/m2 19755.59 g KAYLIA L'HEUREUX [facility] 04/29/2025 15:08:07 Date Recorded Body height Provider Name an d Address Organization Details Last Updated DateTime 04/30/2024 170.18 cm SONAM SHORT [facility] 04/30/2024 10:03:33 Date Recorded Body height Provider Name an d Address Organization Details Last Updated DateTime 06/30/2024 170.18 cm SHILA ALIA [facility] 06/30/2024 13:13:08 Date Recorded Body height Body mass index (BMI) Body weight Provider Name and Address Organization Details Last Updated DateTime 07/21/2024 170.18 cm 29 kg/m2 39053.59 g katiuska chowdhury [facility] 07/21/2024 15:28:14 Date Recorded Body height Body mass index (BMI) Body weight Provider Name and Address Organization Details Last Updated DateTime 09/13/2024 170.18 cm 29 kg/m2 52713.59 g KAYLIA L'HEUREUX [facility] 09/13/2024 14:11:39 Social History None recorded. Functional Status None recorded. Mental Status None recorded. Family History Nothing Reported. Medical History No medical history recorded. Past Encounters Encounter ID Performer Location Encounter Start Date Encounter Closed Date Diagnosis/Indication Diagnosis SNOMED-CT Code Diagnosis ICD10 Code Diagnosis IMO Codes Diagnosis Note [id number] Zeke Cooper MD [facility] [address] [place] [address] 03/04/2024 10:51:04 03/25/2024 11:36:10 Pain of left ankle joint 6580301004 2933134 M25.449 [id number] NILAM Phillips [address] [place] [address] 04/30/2024 09:34:46 06/01/2024 13:00:00 Pain of hip region 13467852 M25.551 Trochanter ic bursitis of right hip 4344585027 70416 M70.61 Osteoarthr itis of right hip joint 7191531893 69379 M16.11 [id number] NILAM Phillips [address] [place] [address] 06/30/2024 13:04:48 07/22/2024 09:26:23 Trochanteric bursitis of right hip 2861336974 43881 M70.61 Osteoarthr itis of right hip joint 3550911676 44010 M16.11 [id number] NILAM Phillips [address] [place] [address] 07/21/2024 15:12:59 08/13/2024 08:53:53 Pain of left knee joint 2009641911 00024 M25.562 Bilateral osteoarthritis of knees 8018204605 81227 M17.0 [id number] Qiana Mobley PA-C [facility] [address] [place] [address] 09/13/2024 14:02:06 10/06/2024 13:01:07 Trochanteric bursitis of right hip 6685912145 41328 M70.61 [id number] Reviewed patient's imaging and exam findings in detail with him. Discussed that he does have some component of trochanter ic bursitis related symptoms. Encouraged formal physical therapy targeted at IT band stretching , SI joint stretching and foam rolling/so ft tissue modalities . This will hopefully help to illuminate recurrence of his symptoms. However much of his current symptoms do seem more localized to the SI joint and seem consistent with sacroiliit is and piriformis syndrome. Therefore recommend referral back to [facility] for considerat ion of SI joint injections if he has residual pain not improved by his current injections and therapy. He is in agreement with this. This was reviewed with his who attends a visit with him. All questions and concerns were addressed and answered. Inflammati on of sacroiliac joint 59911690 M46.1 88853 [id number] NILAM [facility] [address] [place] [address] 04/29/2025 14:52:52 05/13/2025 09:55:46 Trochanteric bursitis of right hip 4051548715 48384 M70.61 [id number] PLAN I reviewed imaging and examinatio n findings in detail with the patient. Discussed different treatment options which include oral anti-infla mmatory medication s, physical therapy, home exercise/s tretching program and injections . The patient wishes to proceed with cortisone injection today. Discussed injections can be repeated as often as every 3 months. Recommend formal physical therapy for IT band stretching , abductor strengthen ing, soft tissue modalities and foam rolling. Patient declines. Patient will follow up on an as needed basis as symptoms dictate moving forward. All questions and concerns were addressed and answered. Did review with him that his radicular symptoms would not be associated with his trochanter ic bursitis. However his altered gait could certainly be exacerbati ng some underlying sciatica related symptoms. He has had injections with [facility] which were not helpful for this radicular pain. Seems to get the most relief from his stroke bursa injections . Discussed that he can repeat these as often as every 3 months as needed. Health Concerns Section Related Observation LastModified by Organization Adin ls LastModified Time None Recorded Concern Status LastModified by Organization Details LastModified Time None Recorded Advance Directives Directive None Recorded Payers Insurance Date Sequence Insurance Name Policy Number Policy Spicer Covered Member ID Spicer Member ID Guarantor Name 08/27/2025 1 [employer] (MEDICARE REPLACEMENT/ ADVANTAGE - PPO) [id number] Jamir Cruz [id number] Jamir Cruz 04/29/2025 2 [place] [id number] Jamir Cruz [id number] Jamir Cruz 04/12/2025 1 [place] [employer] Jamir Cruz [id number] Jamir Cruz Notes Date Note Type Note Provider Name and Address Organization Details Recorded Time 04/30/2024 text/html I am seeing the patient today under the supervision of [ ] who was available but who did not see the patient. HPI: Jamir presents to the office today for an evaluation of his right hip. His pain began approximately 9 months ago as he was recovering from a fractured foot. He describes his pain as being along the lateral aspect of the hip. Symptoms are most significant when getting up from a seated position, sleeping at night, and prolonged activity. He has been taking Celebrex for his pain. He was receiving treatment by an outside physician and indicates he received injections into his back. This did not improve his hip pain. He denies any groin pain or radicular symptoms. He is here today for treatment recommendations. PMH/PSH/MEDS/ALL/FMH/ SOC HX/ROS are reviewed in detail per my medical intake sheet. General Exam: Vital signs are as noted below Mental status: Alert and lucid. Normal insight, affect and grooming. IRONMOLDER: Gross motor coordination is intact. No spasticity or clonus noted. EXAMINATION: The patient is well appearing and in no apparent distress. Alert and oriented x3. Gait is antalgic. Right hip reveals no obvious deformity upon inspection. No edema, erythema, ecchymosis, or lesions. Neurovascularly intact. Tenderness present over the greater trochanter. ROM full in all planes. Negative impingement sign, Álvaro's, Stinchfield test, and straight leg raise. No instability. 5/5 strength. Calf/leg compartments soft and compressible. Contralateral hip reveals no obvious deformity upon inspection. No edema, erythema, ecchymosis, or lesions. Neurovascularly intact. No localized tenderness. ROM full in all planes. Negative impingement sign, Álvaro's, Stinchfield test, and straight leg raise. No instability. 5/5 strength. Calf/leg compartments soft and compressible. Lumbar spine reveals no obvious deformities upon inspection. No edema, erythema, ecchymosis, or lesions. ROM is full and pain free. Straight leg raise is negative in the sitting and supine position. No focal neurologic deficits in the lower extremities. X-rays ordered, obtained and reviewed at [facility] today include an AP pelvis and lateral view of right hip. Images reveal mild osteoarthritis and a cam deformity. No acute fracture or lesion. IMPRESSION: Right hip greater trochanteric bursitis and mild OA PLAN: The patient was thoroughly counseled today regarding their hip condition, its natural history, and the treatment options including physical therapy, medication, and a corticosteroid injection. The patient is interested in receiving an injection with corticosteroid. Right trochanteric region was prepped sterilely, and injection was administered at the point of maximum tenderness utilizing 40mg of Kenalog and 4cc of 0.25% Marcaine. The patient tolerated the procedure well. Post-injection precautions were discussed. A prescription for physical therapy was also provided. I will see him back in the office in 6 weeks for a recheck. All questions answered. Jessica Sheppard PA-C [address] [place] [address] [address], [place], [address], [facility] 05/02/2024 08:17:04 06/30/2024 text/html I am seeing the patient today under the supervision of Dr. Gupta who was available but who did not see the patient. HPI: Jamir presents to the office today for a recheck of his right hip. His pain began approximately 10 months ago as he was recovering from a fractured foot. He describes his pain as being along the lateral aspect of the hip. Symptoms are most significant when getting up from a seated position, sleeping at night, and prolonged activity. He has been taking Celebrex for his pain. He was receiving treatment by an outside physician and indicates he received injections into his back. This did not improve his hip pain. He denies any groin pain or radicular symptoms. He was diagnosed with hip bursitis and osteoarthritis at his last visit. I administered a bursa cortisone injection and provided him with a physical therapy prescription. He found the cortisone injection to be extremely helpful. He feels as if he is approximately 90% improved. PMH/PSH/MEDS/ALL/FMH/ SOC HX/ROS are reviewed in detail per my medical intake sheet. General Exam: Vital signs are as noted below Mental status: Alert and lucid. Normal insight, affect and grooming. IRONMOLDER: Gross motor coordination is intact. No spasticity or clonus noted. EXAMINATION: The patient is well appearing and in no apparent distress. Alert and oriented x3. Gait is antalgic. Right hip reveals no obvious deformity upon inspection. No edema, erythema, ecchymosis, or lesions. Neurovascularly intact. Mild tenderness present over the greater trochanter. ROM full in all planes. Negative impingement sign, Álvaro's, Stinchfield test, and straight leg raise. No instability. 5/5 strength. Calf/leg compartments soft and compressible. Contralateral hip reveals no obvious deformity upon inspection. No edema, erythema, ecchymosis, or lesions. Neurovascularly intact. No localized tenderness. ROM full in all planes. Negative impingement sign, Álvaro's, Stinchfield test, and straight leg raise. No instability. 5/5 strength. Calf/leg compartments soft and compressible. Lumbar spine reveals no obvious deformities upon inspection. No edema, erythema, ecchymosis, or lesions. ROM is full and pain free. Straight leg raise is negative in the sitting and supine position. No focal neurologic deficits in the lower extremities. X-rays ordered, obtained and reviewed at [facility] previously include an AP pelvis and lateral view of right hip. Images reveal mild osteoarthritis and a cam deformity. No acute fracture or lesion. IMPRESSION: Right hip greater trochanteric bursitis and mild OA PLAN: The patient has responded favorably to his recent cortisone injection. He only has minor discomfort at this time. He does not feel as if an additional injection is necessary today. He prefers to monitor his symptoms and if they do not further improve he will call the office. All questions answered. I am seeing the patient today under the supervision of [ ] who was available but who did not see the patient. HPI: Jamir presents to the office today for an evaluation of his right hip. His pain began approximately 9 months ago as he was recovering from a fractured foot. He describes his pain as being along the lateral aspect of the hip. Symptoms are most significant when getting up from a seated position, sleeping at night, and prolonged activity. He has been taking Celebrex for his pain. He was receiving treatment by an outside physician and indicates he received injections into his back. This did not improve his hip pain. He denies any groin pain or radicular symptoms. He is here today for treatment recommendations. PMH/PSH/MEDS/ALL/FMH/ SOC HX/ROS are reviewed in detail per my medical intake sheet. General Exam: Vital signs are as noted below Mental status: Alert and lucid. Normal insight, affect and grooming. IRONMOLDER: Gross motor coordination is intact. No spasticity or clonus noted. EXAMINATION: The patient is well appearing and in no apparent distress. Alert and oriented x3. Gait is antalgic. Right hip reveals no obvious deformity upon inspection. No edema, erythema, ecchymosis, or lesions. Neurovascularly intact. Tenderness present over the greater trochanter. ROM full in all planes. Negative impingement sign, Álvaro's, Stinchfield test, and straight leg raise. No instability. 5/5 strength. Calf/leg compartments soft and compressible. Contralateral hip reveals no obvious deformity upon inspection. No edema, erythema, ecchymosis, or lesions. Neurovascularly intact. No localized tenderness. ROM full in all planes. Negative impingement sign, Álvaro's, Stinchfield test, and straight leg raise. No instability. 5/5 strength. Calf/leg compartments soft and compressible. Lumbar spine reveals no obvious deformities upon inspection. No edema, erythema, ecchymosis, or lesions. ROM is full and pain free. Straight leg raise is negative in the sitting and supine position. No focal neurologic deficits in the lower extremities. X-rays ordered, obtained and reviewed at [facility] today include an AP pelvis and lateral view of right hip. Images reveal mild osteoarthritis and a cam deformity. No acute fracture or lesion. IMPRESSION: Right hip greater trochanteric bursitis and mild OA PLAN: The patient was thoroughly counseled today regarding their hip condition, its natural history, and the treatment options including physical therapy, medication, and a corticosteroid injection. The patient is interested in receiving an injection with corticosteroid. Right trochanteric region was prepped sterilely, and injection was administered at the point of maximum tenderness utilizing 40mg of Kenalog and 4cc of 0.25% Marcaine. The patient tolerated the procedure well. Post-injection precautions were discussed. A prescription for physical therapy was also provided. I will see him back in the office in 6 weeks for a recheck. All questions answered. Jessica Sheppard PA-C [address], [place], [address], [facility] 06/30/2024 22:18:35 07/21/2024 text/html I am seeing the patient today under the supervision of Dr. Gupta who was available but who did not see the patient. HPI: Jamir presents to the office today for an evaluation of his bilateral knees. He has been experiencing anterior medial discomfort for quite some time. Years ago he had a right knee arthroscopy. His symptoms are most significant with weightbearing activities and deep knee flexion. He has braces which he wears for support. He denies any instability. He has been taking [id number] medication intermittently for his pain. He is here today for treatment recommendations. PMH/PSH/MEDS/ALL/FMH/ SOC HX/ROS are reviewed in detail per my medical intake sheet. General Exam: Vital signs are as noted below Mental status: Alert and lucid. Normal insight, affect and grooming. IRONMOLDER: Gross motor coordination is intact. No spasticity or clonus noted. EXAMINATION: The patient is well appearing and in no apparent distress. Alert and oriented x3. Gait is antalgic. Bilateral knees reveal no deformity upon inspection. No joint effusion, edema, erythema, ecchymosis, or lesions. Neurovascularly intact. Tenderness present along the medial joint line. ROM is from 0-125 degrees. Patellofemoral crepitus noted. Stability intact with anterior, posterior, and varus/valgus stress at both 0 and 30 degrees of flexion. Positive flexion pinch. 5/5 strength. Calf/leg compartments soft and compressible. Bilateral hip exam reveals painless passive range of motion. No instability. 5/5 strength. X-rays ordered, obtained and reviewed at [facility] today include 4 views of bilateral knees. Images reveal moderate osteoarthritis of the medial compartment and mild to moderate patellofemoral osteoarthritis. No acute fracture or lesion. IMPRESSION: Bilateral knee osteoarthritis PLAN: The patient was thoroughly counseled today regarding their knee condition, its natural history, and conservative versus surgical treatment options. The patient is interested in receiving an injection with corticosteroid. Bilateral knees were prepped sterilely and an injection was administered utilizing 40mg of Kenalog and 4cc of 0.25% Marcaine. The patient tolerated the procedure well. Post-injection precautions were discussed. Recommended avoiding strenuous activity over the next 24-48 hours. Encouraged elevation of the leg, applying ice, and taking over the counter medication as needed. The patient is aware that the injection can be repeated as often as every 3 months. If he finds his symptoms are not improved over the next 1 to 2 weeks, he will call the office and I will order a MRI to rule out a medial meniscus tear or other internal derangement. All questions answered. Jessica Sheppard PA-C [address], [place], [address], [facility] 07/21/2024 16:28:43 09/13/2024 text/html ROS as noted in the HPI I am seeing the patient under the general supervision of Dr. Hernández who was available but who did not see the patient. Patient is a 74 year old male who presents today with chief complaint of right hip pain. He is previously established with my colleague Heather Rivera who diagnosed him with right trochanteric bursitis. He had an injection in June which was helpful and started wearing off about 3 weeks ago. He currently localizes his pain to the medial low back in the region of the SI joint as well as along the piriformis distribution. Does have pain which radiates down his buttock and the sciatic nerve distribution. Also has lateral sided hip pain. Is previously established with [facility] but states that he stopped going there because he chickened out . DIAGNOSTIC IMAGIN view right hip radiographs previously obtained demonstrate well-preserved femoral acetabular joint space. Moderate cam deformity. No fracture or dislocation. Qiana Mobley PA-C [address], [place], [address], [facility] 09/13/2024 14:49:23 04/29/2025 text/html ROS as noted in the HPI I am seeing the patient under the general supervision of Dr. Hernández who was available but who did not see the patient. The patient presents today for follow-up visit. Has known trochanteric bursitis of the right hip(s). Patient has had previous cortisone injections with good clinical response until recently. No new fall, trauma or injury. No fevers or chills, no neurovascular changes. Presents today for further evaluation with request for repeat injection. Last injection was: 09/13/24. Reports last injection worked for quite some time. Started wearing off in January 2025. Localizes the pain to the lateral aspect of the hip and at the posterior lateral trochanter in the region of the gluteal attachments. Does occasionally have pain which radiates down his leg into his foot and ankle. He did see [facility] for sciatica in the past but feels that the trial bursa injections have been the most helpful for his issue. Requests repeat injection today. Qiana Mobley PA-C [address], [place], [address], [place] [facility] 04/29/2025 15:36:18
== END 2025-11-01 13:35 | disposition home or self-care (01) ==
LOC: HO.LAB 13:34
PROVIDERS: Visit Provider Urology
DX: N40.1 Benign prostatic hyperplasia with lower urinary tract symptoms (principal); R33.9 Retention of urine, unspecified; R39.15 Urgency of urination; R35.0 Frequency of micturition
CPT/HCPCS: 81001; 87086

== ENCOUNTER → 2025-11-04 10:18 | Outpatient (BNVA) | payer MEDICARE, SELFPAY | PROVIDERS: Visit Provider Urology | DX: N40.1 Benign prostatic hyperplasia with lower urinary tract symptoms (principal); N13.8 Other obstructive and reflux uropathy; R33.8 Other retention of urine | CPT/HCPCS: 51798 ==